=== PATIENT | female | born 1995 | race African-American/Black ===

== ENCOUNTER 2018-06-30 18:01 | Outpatient (REF) | payer MEDICAID, SELFPAY ==
[2018-07-02 14:13] LABS: Chlamydia Result Negative; GC Result Negative; Specimen Description CERVIX
== END 2018-06-30 18:21 ==
LOC: LBN 18:01
PROVIDERS: PCP Nurse Practitioner Family; Visit Provider Obstetrics & Gynecology Gynecology
DX: R10.32 Left lower quadrant pain (principal)
CPT/HCPCS: 87491; 87591

== ENCOUNTER 2018-07-07 01:28 | Outpatient (CLI) | payer MEDICAID, SELFPAY ==
--- NOTE | 2018-07-07 09:51 | DI.US_ITS ---
SYMPTOM/DIAGNOSIS: LLQ PAIN, R10.32 PELVIC ULTRASOUND: Transabdominal and transvaginal exams were performed. The uterus measures 6.9 by 3.6 by 4.8 cm. The endometrial stripe measures 3 mm. An involuting follicle measuring 2.2 cm. is seen on the left ovary. The right ovary is unremarkable. There is no evidence of ovarian torsion. The kidneys and bladder are unremarkable. IMPRESSION: Involuting dominant follicle versus cyst of the left ovary.
== END 2018-07-07 01:48 ==
PROVIDERS: PCP Nurse Practitioner Family; Visit Provider Obstetrics & Gynecology Gynecology
DX: R10.32 Left lower quadrant pain (principal); N83.02 Follicular cyst of left ovary
CPT/HCPCS: 76830; 76856

== ENCOUNTER 2018-12-10 12:39 | Outpatient (REF) | payer MEDICAID, SELFPAY ==
[2018-12-13 14:13] LABS: Chlamydia Result Negative; GC Result Negative
== END 2018-12-10 12:59 ==
LOC: LBN 12:39
PROVIDERS: PCP Nurse Practitioner Family; Visit Provider Nurse Practitioner Family
DX: Z11.3 Encounter for screening for infections with a predominantly sexual mode of transmission (principal)
CPT/HCPCS: 87491; 87591

== ENCOUNTER 2019-02-16 19:58 | Outpatient (REF) | payer MEDICAID, SELFPAY | END 2019-02-16 20:18 | LOC: NCHCN 19:58 | PROVIDERS: PCP Physician Assistant Medical; Visit Provider Physician Assistant Medical | DX: R35.0 Frequency of micturition (principal) | CPT/HCPCS: 87086 ==

== ENCOUNTER 2019-06-07 13:19 | Outpatient (REF) | payer MEDICAID, SELFPAY ==
[2019-06-07 21:41] LABS: Abs Immature Grans 0.01 k/cumm (0.0-0.09); Absolute Basophil Count 0.01 k/cumm (0.0-0.2); Absolute Eosinophil Count 0.07 k/cumm (0.0-0.7); Absolute Lymphocyte Count 1.58 k/cumm (1.2-3.4); Absolute Monocyte Count 0.47 k/cumm (0.11-0.7); Absolute Neutrophil Count 4.47 k/cumm (1.2-6.7); Basophils % 0.2; Eosinophils % 1.1; HCT 36.3 % (36.0-46.0); HGB 12.7 g/dL (12.0-15.5); Immature Grans % 0.2; Lymphocytes % 23.9; Mean Corpuscular Hemoglobin 28.1 pg (27.0-33.0); Mean Corpuscular Volume 80.3 fL (80-95); Mean Platelet Volume 12.4 fL (8.0-11.0); Monocytes % 7.1; Neutrophils % 67.5; Platelet Count 249 x1000/uL (130-400); RBC 4.52 m/cumm (4.00-5.20); RBC Distribution Width 14.8 % (11.7-14.6); White Blood Cell Count 6.61 k/cumm (4.4-10.8)
[2019-06-07 22:13] LABS: ALT 19 U/L (14-59); AST 12 U/L (15-37); Albumin 3.8 g/dL (3.4-5.0); Alkaline Phosphatase 76 U/L (46-116); Anion Gap 11.3 mmol/L (3-11); BUN 10 mg/dL (7-18); Bilirubin, Total 0.3 mg/dL (0.2-1.0); CO2 24.7 mmol/L (21.0-32.0); CREATININE 0.62 mg/dL (0.55-1.02); Calcium 8.8 mg/dL (8.5-10.1); Chloride 104 mmol/L (98-107); Glucose 91 mg/dL (70-100); Potassium 3.5 mmol/L (3.5-5.1); Sodium 140 mmol/L (136-145); Total Protein 7.2 g/dL (6.4-8.2)
== END 2019-06-07 13:39 ==
LOC: NCHCN 13:19
PROVIDERS: PCP Physician Assistant Medical; Visit Provider Nurse Practitioner Family
DX: F41.8 Other specified anxiety disorders (principal); K21.9 Gastro-esophageal reflux disease without esophagitis; Z86.2 Personal history of diseases of the blood and blood-forming organs and certain disorders involving the immune mechanism
CPT/HCPCS: 80053; 84443; 85025

== ENCOUNTER 2019-07-25 10:03 | Outpatient (CLI) | payer MEDICAID, SELFPAY ==
[2019-07-25 10:51] LABS: Kit/Specimen SENT
[2019-07-25 11:16] LABS: Abs Immature Grans 0.01 k/cumm (0.0-0.09); Absolute Basophil Count 0.02 k/cumm (0.0-0.2); Absolute Eosinophil Count 0.06 k/cumm (0.0-0.7); Absolute Lymphocyte Count 1.12 k/cumm (1.2-3.4); Absolute Neutrophil Count 6.29 k/cumm (1.2-6.7); Basophils % 0.3; Eosinophils % 0.8; HCT 33.8 % (36.0-46.0); HGB 11.8 g/dL (12.0-15.5); Immature Grans % 0.1; Mean Corp. HGB Concentration 34.9 g/dL (32.0-36.0); Mean Corpuscular Volume 80.1 fL (80-95); Mean Platelet Volume 11.5 fL (8.0-11.0); Monocytes % 6.3; Neutrophils % 78.5; Platelet Count 232 x1000/uL (130-400); RBC 4.22 m/cumm (4.00-5.20); RBC Distribution Width 14.5 % (11.7-14.6)
[2019-07-25 12:24] LABS: TSH (W/Ref FT4) 0.59 uIU/mL (0.36-3.74)
[2019-07-26 11:45] LABS: Hepatitis B Surface Ag Negative (Negative)
[2019-07-26 12:10] LABS: HIV-1/2 Ag & Ab Screen Negative (Negative)
[2019-07-26 12:11] LABS: Hepatitis C Ab w Rflx HCV PCR Negative (Negative)
[2019-07-26 13:40] LABS: Syphilis Total Ab w/Reflex Nonreactive (Nonreactive)
[2019-07-26 14:14] LABS: Rubella IgG Ab (UVM) Positive (See Note); Varicella IgG Antibody Positive (See Note)
== END 2019-07-25 10:23 ==
PROVIDERS: PCP Nurse Practitioner Family; Visit Provider Advanced Practice Midwife
DX: Z34.91 Encounter for supervision of normal pregnancy, unspecified, first trimester (principal); Z36.89 Encounter for other specified antenatal screening
CPT/HCPCS: 86787; 86803; 86850; 86900; 86901; 87340; 87389; 84443; 85025; 86762; 86780

== ENCOUNTER 2019-07-25 12:09 | Outpatient (REF) | payer MEDICAID, SELFPAY ==
[2019-07-25 14:21] LABS: *AMPHETAMINES SCREEN URINE Negative (Negative); *BARBITURATES SCREEN URINE Negative (Negative); *BENZODIAZEPINES SCREEN URINE Negative (Negative); Cannabinoids THC Negative (Negative); Cocaine Screen,Urine Negative (Negative); METHADONE URINE SCREEN Negative (Negative); OPIATES URINE SCREEN Negative (Negative)
[2019-07-25 14:32] LABS: Tricyclic Antidepressants Negative (Negative)
[2019-07-27 15:12] LABS: Chlamydia Result Negative (Negative)
[2019-07-29 14:15] LABS: GC Result Negative (Negative)
[2019-08-02 12:41] LABS: Buprenorphine Negative; Norbuprenorphine Negative
== END 2019-07-25 12:29 ==
LOC: LBN 12:09
PROVIDERS: PCP Nurse Practitioner Family; Visit Provider Advanced Practice Midwife
DX: Z34.91 Encounter for supervision of normal pregnancy, unspecified, first trimester (principal); Z11.3 Encounter for screening for infections with a predominantly sexual mode of transmission
CPT/HCPCS: 80307; 87491; 87591; 87086; 87480; 87510; 87660

== ENCOUNTER 2019-09-19 01:14 | Outpatient (CLI) | payer MEDICAID, SELFPAY ==
--- NOTE | 2019-09-19 09:02 | DI.US_ITS ---
EXAM: US OB 2-3 TRIMESTER CLINICAL HISTORY: ROUTINE CARE, Z34.90 SUPERVISION NORMAL TECHNIQUE: Ultrasound performed using standard protocol. COMPARISON: US PELVIS TRANSVAGINAL from 07/07/2018 FINDINGS: Fetus was in variable position during the exam. The placenta is anterior. The biometric measurement s correspond to 19 weeks 3 days and an EDC of January,. No abnormalities are seen. The amn iotic fluid appears visually normal. IMPRESSION: survey is within normal limits.
== END 2019-09-19 01:34 ==
PROVIDERS: PCP Nurse Practitioner Family; Visit Provider Advanced Practice Midwife
DX: Z34.92 Encounter for supervision of normal pregnancy, unspecified, second trimester (principal); Z3A.19 19 weeks gestation of pregnancy
CPT/HCPCS: 76805

== ENCOUNTER 2019-09-19 10:24 | Outpatient (CLI) | payer MEDICAID, SELFPAY ==
[2019-09-20 16:34] LABS: AFP 48.4 ng/mL; Calculated age at EDD 26 years; GA used in risk estimate Scan estimate; IVF Pregnancy No; Initial or repeat testing Initial testing; Insulin dependent diabetes No; Maternal Weight 164 lbs; Number of Fetuses 1; Physician Phone Number 802-748-7300; Prev Pregnancy w/NTD No; RECOMMENDED FOLLOW UP None.; Results Summary Normal risk
== END 2019-09-19 10:44 ==
PROVIDERS: PCP Nurse Practitioner Family; Visit Provider Advanced Practice Midwife
DX: Z34.92 Encounter for supervision of normal pregnancy, unspecified, second trimester (principal); Z36.89 Encounter for other specified antenatal screening; Z3A.19 19 weeks gestation of pregnancy
CPT/HCPCS: 36415; 76805; 82105

== ENCOUNTER 2019-11-30 02:50 | Outpatient (CLI) | payer MEDICAID, SELFPAY ==
[2019-11-30 08:47] LABS: Glucose,1 Hr (Glucola) 115 mg/dL (80-140)
[2019-11-30 09:00] LABS: HCT 31.6 % (36.0-46.0); HGB 11.1 g/dL (12.0-15.5); Mean Corp. HGB Concentration 35.1 g/dL (32.0-36.0); Mean Corpuscular Hemoglobin 29.7 pg (27.0-33.0); Mean Corpuscular Volume 84.5 fL (80-95); Mean Platelet Volume 11.6 fL (8.0-11.0); Platelet Count 183 x1000/uL (130-400); RBC 3.74 m/cumm (4.00-5.20); RBC Distribution Width 13.6 % (11.7-14.6); White Blood Cell Count 7.46 k/cumm (4.4-10.8)
== END 2019-11-30 03:10 ==
PROVIDERS: PCP Nurse Practitioner Family; Visit Provider Advanced Practice Midwife
DX: Z34.93 Encounter for supervision of normal pregnancy, unspecified, third trimester (principal)
CPT/HCPCS: 36415; 82950; 85027

== ENCOUNTER 2019-12-29 01:29 | Observation (INO) | payer MEDICAID, SELFPAY ==
[2019-12-29 01:44] LABS: Bilirubin Negative (Negative); Blood Negative (Negative); Clarity Clear (Clear); Glucose Negative (Negative); Ketones Negative (Negative); Leukocyte Esterase Negative (Negative); Nitrite Negative (Negative); Urobilinogen 0.2 EU/dL (Up TO 0.2)
[2019-12-29 02:13] LABS: Fetal Fibronectin Negative (Negative)
== END 2019-12-29 08:40 | disposition home or self-care (01) ==
LOC: OBS 01:31
PROVIDERS: Admitting Provider Advanced Practice Midwife; PCP Nurse Practitioner Family; Visit Provider Advanced Practice Midwife
DX: O60.03 Preterm labor without delivery, third trimester (principal); Z3A.32 32 weeks gestation of pregnancy
CPT/HCPCS: 81003; 82731; G0378

== ENCOUNTER 2020-01-10 10:02 | Observation (INO) | payer MEDICAID, SELFPAY ==
[2020-01-10] MEDS: Fluconazole 150 MG TAB PO (12:35)
--- NOTE | 2020-01-16 15:58 | NUR.NOTE ---
(Please see previous visit notes for additional information.) Encounter Date/Time: 01/16/2020 @ [id number] IDENTIFIERS Mother: Vicenta Richey :05.23.1994 Baby?s name: Yola Pang : 01/16/2022 @ 0402 Father/partner: Eric Pang SITUATION Concerns: -Routine visit introduction of services, assessment & POC Infant has not had a sustained latch and suck since delivery MATERNAL OR PROVIDER CONCERNS No sustained latch and suck Referred by Tone CORTES 01/15 @ 1050 ABM #5 indications for referral to services -Maternal or infant condition for which must be temporarily postponed or for which milk expression is required. POTENTIAL DIAGNOSTIC CODES common codes Maternal: Z39.1 Encounter of care of lactating mother Infant/[place] P92.9 Feeding problems of , unspecified Individualized Feeding Plan from Assessment Name: Yola Pang : 01/16/2022 @ 0402 Date: 01/16/2020 @ 1300 Parent feeding goals: . Parents desire to supplement with breastmilk and formula if any concern that Yola is not getting enough to eat. Feed the Baby Most babies feed 8-12 times per day Support the Milk Supply Aim for 8 or more milk removals per day Feed Yola with early feeding cues. Goal of 8-12 feedings per day lasting at least 10 minutes. 1) Wake Yola at least every 2-3 hours if she isn?t rousing for feeds. Limit latch attempts to 5 minutes. Hand express breastmilk into her mouth or give it to her by a spoon or pipette Position note Support Yola by her shoulders and offer the breast nipple to nose, bring her close when she opens her mouth wide, chin on first. 2) Supplement with expressed breastmilk. If supplement is indicated or if parents desire to supplement, expect the following amounts. ? Day 1: 2-10 ml per feeding ? Day 2: 5-15 ml per feeding ? Day 3: 15-30 ml per feeding ? Day 4: 30-60 ml per feeding ? Day 5: 63-79 ml per feeding 3) Double pump 4) Yola may wake and want to feed more after she has been supplemented. Yola may wake up later tonight and feed well at breast without the need to pump or supplement. 8-12 times a day for at least 15-20 minutes: breastfeed effectively or pump your breast. Confirm flange fit and maximum comfortable suction. Clean pump equipment after each pumping and sanitize every 24 hours. Bring baby & parent together Resolving the problem may take some time. Take Care of yourself Eat well, drink as you?re thirsty, rest with baby [id number] as much as possible. 30-45 minutes: Keep all feeding/pumping efforts together. Track your progress - feeding and pumping. Breasts: Massage your breasts before feeding or pumping or if breasts feel full. Prevent engorgement by feeding frequently. Warm packs BEFORE feeding. Cool packs BETWEEN feedings if still firm. Ibuprofen if recommended by your provider. Nipples: Mother Love/Hydrogel if needed Resources: [facility] [phone] [facility] Services: [phone] [facility]: [phone] (Steff Ramos @ [facility] [place] [phone] ([facility]) [facility] support for all new families: Every Thursday am @ [facility] Follow-up plan: Supplement Method Notes Adjust feeding method to baby?s effort and your comfort: o Fill a pipette with breastmilk. Insert your finger into your baby?s mouth and place the pipette next to your finger. Allow your baby to suck the breastmilk from the pipette. o Spoon or Cup feeding Hold your baby upright. Place the lip of the spoon or cup up to your baby?s lip and let them lick or sip the milk from the edge of the spoon or cup. o Paced bottle feeding Hold your baby upright and the bottle horizontally. Allow the milk to flow at your baby?s pace. -Contact Digital Research Analyst for further support, if nipples become more uncomfortable or if nipple trauma develops. -Contact your bookkeeping machine operator or OB provider promptly if you have any signs of infection or mastitis: fever, chills, shaking, feeling like you are getting the flu, redness, drainage or tenderness of your breast. -Contact infant?s resource recovery engineer/family doctor/PCP with any medical concerns or if is not meeting recommended or output goals or if any concerns about maternal medications and . SUMMARY Su findings related to standard Setting/Communication: IBCLC visited couplet and FOB on the Center. Yola was skin to skin on mother?s chest, resting and FOB sitting in chair. IBCLC introduced services and offered a visit. Parents expressed concern that has not latched yet and had several questions. IBCLC interviewed parents around feeding plan, reinforced informed choice. Mother and FOB states desire to breastfeed and want to supplement with formula by bottle if concerned that is not getting enough to eat or if mother is fatigued and FOB desires to feed infant in the middle of the night. IBCLC reviewed risks of supplementation and artificial nipples and supported informed choice. FOB states concern about immediate feeding and mother cites fatigue. IBCLC reviewed information, assisted /c latch/feeding attempt, initiating breast pump and applied for a breast pump from insurance. IBCLC reviewed feeding assessment, provided instructions around feeding and pumping, assisted /c a pumping and applied for a pump through [employer] to [facility]. Mother is a primip O pos, GBS negative /c hx of bipolar disorder and marijuana use daily. Mother cites support from FOB who is present, involved and supportive. Mother is fatigued during this visit and defers to FOB. delivered at term, AGA, precipitous labor and delivery, apgars 8/9 and had immediate skin to skin x 88 minutes. Mother has BCBS and purchased 2 manual pump prior to delivery. IBCLC reviewed access through the [employer]/their insurance and offered to assist application. IBCLC applied through [employer] for a breast pump with mother input and choice; mother has script copy. Yola has limited physical readiness to feed that is consistent with her gestational age. She is sleepy, has otherwise normal tone, limited cuing/hands to mouth. Her output is adequate for age one void and one stool. TCB not done as she is less than 12 hours. Her face has some asymmetry with right occipital/parietal bossing from presentation; mouth is symmetrical, with maxillary/mandibular approximation, full cup, closes jaw when tongue lift to palate, blister on upper lip. Limited mouth movements influenced by a sleepy baby. Mother has offered the breast 4 times in the last 7 hours with some latch and no sustained suck. rouses for about 50% of feeds. Yola was positioned skin to skin and ventral. Mother states she prefers the right breast. IBCLC instructed mom about breast massage and hand expression. Mother sleepy and FOB and IBCLC assisting mom /c expression expressed several large drops of milk. Milk was expressed into ?s mouth over 10 minutes; had increasing gape, latch and rare sucks. FOB suggested trying the left side in football and IBCLC assisted /c repositioning. Mother expressed milk independently and infant had a latch without suck. IBCLC advised pumping at this time and explained the role of hand expression and pumping, advising 8+/24h. IBCLC instructed in use of pump and mother double pumped x 20 minutes. [phone] IBCLC assisted with a second feeding. Parents state they pumped at 1300 but were waiting for IBCLC to assist with feeding. FOB notes how much easier it would be if he just fed formula by a bottle. Mother cites improved health for and lower cost with feeding breastmilk. IBCLC reinforced their team and counseled parenting is a time of adopting new roles and changing how you work together reinforced their choice, expect a time [place] of a week or two of evolving feeding plan. Both parents cite fatigue, and IBCLC assisted with napping. Mother states breast and nipple comfort and states breast changes with . Mother?s breasts are medium in size, pendulous, venation WNL, symmetrical. Her nipples have a medium diameter, short shaft length, everted at rest, no papillary edema and skin intact. BACKGROUND Risk Assessment AB Protocol #7 Maternal risk factors Primiparity depression Metabolic problems: Tobacco or other drugs/medications Infant risk factors Poor or painful latch, restricted feedings ASSESSMENT Weights and changes (Abdi et al, 2015) Location/Occasion Date Weight (grams) % from BW roll over press operator days Weight Center 01/16/2020 3515 grams Optimal AGA Output r/t age -Adequate voids 1 -Adequate stools 1 Infant Physical Assessment/Physiologic Stability Deferred to pediatric assessment READINESS TO FEED physiology -Muscle Flexion & Tone Normal RODRIGUES symmetrically, Flexed position at rest -Skin Normal normal for race, warm, smooth dry turgor -Respiratory, not oxygenation if monitored Normal RR normal, effort WNL Head Normal slight molding, Alertness/Interest Normal rooting, hand to mouth, easy to rouse, tongue movements Abnormal sleepy, -GI/Diaper area deferred Optimal readiness to feed Concern Adequate physical readiness to feed Age-appropriate feeding behavior Sleepy, requires rousing for feeds -Face at rest & with movement Normal symmetrical -Gums Normal Complete and straight; parallel -Jaw/Maxillary and mandibular symmetry Normal upper and lower aligned with loose opposition -Jaw placement (palpate with finger on inferior gum line to chin) Normal: normal placement, -Jaw Tension (palpate TMJ) Normal Tone relaxed, -Jaw Movement Abnormal jaw movement Narrow gape, arrhythmic, Quiver Buccal assessment: Cheek pads: Normal: Well-developed, full and round during suck Buccal strength (palpate for contraction) Normal: Normal Maxillary labial frenulum: Normal: Flange upwards to nose without tension Kot[place] Type 2 Restricted to mid gum line -Lips - cleft Normal Without cleft, -Lips, appearance Normal Upper lip blister -Lip tone at rest Normal: neutral tension Lips strength: Normal response to command/pulse sensation -Lips/chin position/movement Abnormal poor seal, loose seal, -Hard Palate, shape or appearance Normal: Intact, Abnormal Arch high arch, -Soft Palate, shape & tone Normal: Intact, normal tone -Tongue appearance Normal soft, round tip, symmetrical, rests in bottom of mouth, not visible when lips close -Tongue movement Elevation Abnormal: closes jaw to lift to palate Cup Normal: forms central groove, cups finger Peristalsis Normal: wave like motions, small excursions, tip to posterior tongue Abnormal: Arrhythmic, Extension Normal: Extends over lip, Abnormal: extends over lip and fatigues, Lateralize (rub gum line, tongue moves to sensation) Abnormal: , slow to lateralize, Suck Strength Abnormal: weak resistance Suction with digital oral exam Normal: rhythmic Abnormal: weak negative suction, Functional suck pattern: Transitional: 5-10 sucks/burst Normal: starts and stops a burst pattern Functional suck pattern at breast (expect variability with feed): Normal: adapts with flow Lingual frenulum attachment (AAP 2004) Type 3 Attachment of frenulum to mid-tongue blade Mucosa Normal - healthy Gag reflex: - Normal Present Concerns Related to sleepy baby slow to lateralize, quiver, fatigue with extension, transitional suck burst pattern Feeding Hx Concerns Frequency less than 8 feeds per day Repeated attempts to latch without sustained suck Duration less than 10 minutes Swallowing rare or none Difficult to latch - Sleepy for feedings Longest interval greater than 6 hours SUPPLEMENT - none SATISFACTION - sleepy EXPRESSION/PUMPING - inroducing Feeding assessment ASSESSMENT -Maternal Morgan limited, increasing. Mother cites fatigue Rousing: . Abnormal Independently for half the feedings. Initiation of feeding/Readiness to feed . Concerning/Abnormal: Alert once handled or drowsy. Some sucking. Adequate tone. Position (LAT) Data - Abnormal: head only turned toward mom, shoulders/hips do not align, arms/hands not around breast Abnormal: Mouth opposite nipple to start Action: IBCLC promoted body alignment and nipple to nose, advising collaboration between parents. Response: FOB and mother working together more. Normal: Turned toward mother, shoulders/hips aligned, arms/hands around breast Normal: Nose opposite nipple to start Abnormal: Mouth opposite nipple to start requires reinforcement Attachment Normal: Gape response, head tilts back, Abnormal: top & bottom lip reach breast together, latch only with assistance, must hold nipple in mouth, excessive jaw excursion. Latch Normal wide lip angle 140, asymmetric Lower lip curled in and mom corrects Suck Feeding duration: 3 Abnormal uncoordinated/disorganized, must be stimulated to continue feeding, widely-spaced suck bursts Jaw excursions Normal wide Swallows (Quality, amount, ratio) Quality: Abnormal Absent, Swallow Count Abnormal suck/swallow ratio 4+/1 Maternal comfort Normal tugging Mother?s nipple Normal: similar to pre-feed Satiety Abnormal: baby falls asleep at the breast Quality (Cue-based Feeding Scale) : Abnormal: Latch is weak/inconsistent, with a frequent need to re-latch. Limited effort. May be considered NNBF. -Monitor growth and nutrition MATERNAL Breast and nipple exam -Coping Fair fatigued, dependent on partner -Breasts -Breast pain? No -Shape Normal convex, pendulous, symmetrical Tubular, N underdeveloped, N angle/space - , N asymmetrical, N extramammary tissue/hypermastia, N hypomastia, N axillary breast tissue -Size -medium -Venous pattern WNL Breast assessment Normal filling Assessment Y or N N Lesions N scars, N engorged bilateral generalized edema /s fever and myalgia, N erythema, N [id number], N rash, N ecchymosis, areolar edema, N nodules, N lump/mass, N plugged duct N s/s of mastitis/inflammation unilateral, febrile, myalgia (flu-like s/s) Predisposing factors to mastitis Y or N N Nipple trauma Y Decreased feeding frequency, duration or scheduled, Missed feedings Y Inefficient milk removal poor attachment, weak/uncoordinated suck, pumping, N Rapid weaning N Illness mother or baby N Oversupply N Pressure on the breast bra, car seatbelt N Partial blockage of milk duct - Nipple bleb, plugged duct N Maternal stress/fatigue N Maternal malnutrition Interventions: Breast massage Pumping/hand expression Optimal Breast assessment WNL for infant?s age Had Breast changes with -Nipples -Size/diameter Medium (12-15 mm), -Protraction/shape/shaft length Normal: short-shafted, -Shape after feeding Normal: Same shape Exam Y or N N Papillary edema N Generalized edema N Skin integrity intact N Sensitivity WNL N Purulent drainage not present N Rash/dermatitis N Coloration N Lesions not present N Patterson glands present, not inflamed N Bleb PAIN assessment -Nipple sensation Normal Comfort with light touch States nipple comfort Optimal Nipple assessment WNL -Milk production colostrum transitional milk mature milk Over-abundant milk supply -Milk Ejection Reflex (PAT) WNL Brisk Maternal pain related to PAT -Mother?s estimate of milk supply Jenifer Alonzo, RNC, IBCLC, BSN, MST Digital Research Analyst The Center @ [facility] and [facility] [address] [place] [address] Reviewed: ? Skin to skin ? Feed early and often ? Feeding cues ? Position and attachment ? How often and How long? ? I know my baby is getting enough milk ? Hand expression ? Engorgement ? Maintaining supply ? Babies are sensitive ? Breastmilk is all your baby needs for 6 months Avoid pacifiers and formula. ? When to call for help. Written materials provided: ([facility]) How to know your baby is getting enough to eat Individualized Feeding Plan Daily feeding/pumping log Maggy
== END 2020-01-10 13:15 | disposition home or self-care (01) ==
LOC: OBS 11:43
PROVIDERS: Admitting Provider Advanced Practice Midwife; PCP Nurse Practitioner Family; Visit Provider Advanced Practice Midwife
DX: O60.03 Preterm labor without delivery, third trimester (principal); Z3A.34 34 weeks gestation of pregnancy
CPT/HCPCS: 59025; G0378

== ENCOUNTER 2020-01-20 12:16 | Outpatient (REF) | payer MEDICAID, SELFPAY ==
[2020-01-20 13:41] LABS: *AMPHETAMINES SCREEN URINE Negative (Negative); *BARBITURATES SCREEN URINE Negative (Negative); *BENZODIAZEPINES SCREEN URINE Negative (Negative); Cannabinoids THC Negative (Negative); Cocaine Screen,Urine Negative (Negative); METHADONE URINE SCREEN Negative (Negative); OPIATES URINE SCREEN Negative (Negative); Tricyclic Antidepressants Negative (Negative)
[2020-01-26 17:03] LABS: Buprenorphine Negative; Norbuprenorphine Negative
== END 2020-01-20 12:36 ==
LOC: LBN 12:16
PROVIDERS: PCP Nurse Practitioner Family; Visit Provider Advanced Practice Midwife
DX: Z34.93 Encounter for supervision of normal pregnancy, unspecified, third trimester (principal); Z36.85 Encounter for antenatal screening for Streptococcus B
CPT/HCPCS: 80307; 87081

== ENCOUNTER 2020-01-31 17:15 | Outpatient (CLI) | payer MEDICAID, SELFPAY | END 2020-01-31 17:35 | PROVIDERS: PCP Nurse Practitioner Family; Visit Provider Advanced Practice Midwife | DX: O26.893 Other specified pregnancy related conditions, third trimester (principal); O36.8130 Decreased fetal movements, third trimester, not applicable or unspecified; Z3A.37 37 weeks gestation of pregnancy | CPT/HCPCS: 59025 ==

== ENCOUNTER 2020-02-06 10:23 | Observation (INO) | payer MEDICAID, SELFPAY | END 2020-02-06 12:03 | disposition home or self-care (01) | PROVIDERS: Admitting Provider Advanced Practice Midwife; PCP Nurse Practitioner Family; Visit Provider Advanced Practice Midwife | DX: O47.1 False labor at or after 37 completed weeks of gestation (principal); Z3A.38 38 weeks gestation of pregnancy | CPT/HCPCS: G0378 ==

== ENCOUNTER 2020-02-13 16:26 | Outpatient (CLI) | payer MEDICAID, SELFPAY ==
[2020-02-13 18:17] LABS: ROM Plus Negative
== END 2020-02-13 16:46 ==
PROVIDERS: PCP Nurse Practitioner Family; Visit Provider Advanced Practice Midwife
DX: O99.343 Other mental disorders complicating pregnancy, third trimester (principal); F41.9 Anxiety disorder, unspecified; Z3A.39 39 weeks gestation of pregnancy
CPT/HCPCS: 84112; 59025

== ENCOUNTER 2020-02-15 15:27 | Outpatient (CLI) | payer MEDICAID, SELFPAY | END 2020-02-15 15:47 | PROVIDERS: PCP Nurse Practitioner Family; Visit Provider Advanced Practice Midwife | DX: O47.1 False labor at or after 37 completed weeks of gestation (principal); Z3A.39 39 weeks gestation of pregnancy | CPT/HCPCS: 59025 ==

== ENCOUNTER 2020-02-24 07:41 | Inpatient (IN) | payer MEDICAID, SELFPAY ==
[2020-02-24 08:31] LABS: HCT 33.7 % (36.0-46.0); HGB 11.6 g/dL (12.0-15.5); Mean Corp. HGB Concentration 34.4 g/dL (32.0-36.0); Mean Corpuscular Volume 81.4 fL (80-95); Mean Platelet Volume 12.7 fL (8.0-11.0); Platelet Count 162 x1000/uL (130-400); RBC 4.14 m/cumm (4.00-5.20); RBC Distribution Width 14.3 % (11.7-14.6); White Blood Cell Count 10.83 k/cumm (4.4-10.8)
[2020-02-25 07:46] LABS: HCT 32.1 % (36.0-46.0); Mean Corp. HGB Concentration 34.3 g/dL (32.0-36.0); Mean Corpuscular Hemoglobin 27.9 pg (27.0-33.0); Mean Corpuscular Volume 81.5 fL (80-95); Mean Platelet Volume 12.2 fL (8.0-11.0); Platelet Count 162 x1000/uL (130-400); RBC 3.94 m/cumm (4.00-5.20); RBC Distribution Width 14.4 % (11.7-14.6); White Blood Cell Count 13.48 k/cumm (4.4-10.8)
[2020-02-27] MEDS: Oxytocin 10 UNITS/ML VIAL IM (08:42)
[2020-02-27 11:59] LABS: COVID-19 RT-PCR UVMMC Result Negative (Negative)
== END 2020-02-26 10:05 | disposition home or self-care (01) | DRG 807 ==
PROVIDERS: Advanced Practice Midwife; Admitting Provider Advanced Practice Midwife; PCP Nurse Practitioner Family; Visit Provider Advanced Practice Midwife
DX: O69.3XX0 Labor and delivery complicated by short cord, not applicable or unspecified (principal); Z37.0 Single live birth; O48.0 Post-term pregnancy; Z3A.41 41 weeks gestation of pregnancy; O99.344 Other mental disorders complicating childbirth; O99.62 Diseases of the digestive system complicating childbirth; F41.8 Other specified anxiety disorders; K21.9 Gastro-esophageal reflux disease without esophagitis; Z11.59 Encounter for screening for other viral diseases
CPT/HCPCS: 36415; 85027; 86850; 86900; 86901; U0003; J2590

== ENCOUNTER 2020-04-09 12:11 | Outpatient (REF) | payer MEDICAID, SELFPAY ==
--- NOTE | 2020-04-09 11:40 | PAPFT_PTH ---
PATIENT: Claudia Greco LOC: [facility] U#:[id number] AGE/SX: 24/F ROOM: RE04/09/[address]: Ana Duff CNM : 1995 BED: DIS: 04/09/2020 SPEC #: [id number] RECD: 04/09/20 18:13 STATUS: AVIVA REQ #: [id number] CANDACE: 04/09/20 11:[address]: Ana Duff DEPT: [facility] Cytology RECD BY: Juliana Vergara ENTERED: 04/09/20 18:13 SP TYPE: PAPFT OTHR DR: Temitope Jeronimo Tissues: 1 - CX/ENDOCX FOR PAP SMEARS Procedures: PAP THIN PREP/UVM Screening Comments: [id number] (CHLAMYDIA/GC)
[2020-04-12 15:30] LABS: Chlamydia Result Negative (Negative); GC Result Negative (Negative)
== END 2020-04-09 12:31 ==
LOC: LBN 12:11
PROVIDERS: PCP Nurse Practitioner Family; Visit Provider Advanced Practice Midwife
DX: Z11.3 Encounter for screening for infections with a predominantly sexual mode of transmission (principal); Z11.51 Encounter for screening for human papillomavirus (HPV)
CPT/HCPCS: 87491; 87591; 88142

== ENCOUNTER 2020-05-07 15:35 | Outpatient (REF) | payer MEDICAID, SELFPAY ==
[2020-05-07 19:52] LABS: Abs Immature Grans 0.03 10^3/uL (0.0-0.06); Absolute Basophil Count 0.02 10^3/uL (0.0-0.2); Absolute Eosinophil Count 0.12 10^3/uL (0.0-0.7); Absolute Monocyte Count 0.43 10^3/uL (0.1-0.8); Absolute Neutrophil Count 5.57 10^3/uL (1.2-6.7); Basophils % 0.3; Eosinophils % 1.5; HCT 36.9 % (36.0-46.0); HGB 12.6 g/dL (11.2-15.7); Immature Grans % 0.4; Lymphocytes % 22.6; MCH 27.4 pg (27.0-33.0); MCHC 34.1 % (32.0-36.0); MCV 80.2 fL (80-95); MPV 12.3 fL (8.0-11.0); Monocytes % 5.4; Neutrophils % 69.8; Nucleated RBC 0 %; Platelet Count 251 10^3/uL (130-400); RDW 14.1 % (11.7-14.6); RDW-SD 40.8 fL; WBC 7.97 10^3/uL (4.4-10.8)
[2020-05-07 20:14] LABS: Anion Gap 11.3 mmol/L (3-11); BUN 12 mg/dL (7-18); CO2 25.7 mmol/L (21.0-32.0); Calcium 8.6 mg/dL (8.5-10.1); Chloride 101 mmol/L (98-107); Glucose 115 mg/dL (74-106); Magnesium 1.5 mg/dL (1.8-2.4); Potassium 3.5 mmol/L (3.5-5.1); Sodium 138 mmol/L (136-145); TSH 0.84 uIU/mL (0.36-3.74)
== END 2020-05-07 15:55 ==
LOC: NCHCN 15:35
PROVIDERS: PCP Nurse Practitioner Family; Visit Provider Nurse Practitioner Family
DX: F41.8 Other specified anxiety disorders (principal); R89.9 Unspecified abnormal finding in specimens from other organs, systems and tissues
CPT/HCPCS: 80048; 82306; 83735; 84443; 85025

== ENCOUNTER 2020-11-01 11:14 | Outpatient (REF) | payer MEDICAID, SELFPAY ==
[2020-11-01 15:43] LABS: HGB 10.1 g/dL (11.2-15.7); MCH 27.6 pg (27.0-33.0); MCHC 33.7 % (32.0-36.0); MPV 11.5 fL (8.0-11.0); Platelet Count 302 10^3/uL (130-400); RBC 3.66 10^6/uL (3.93-5.22); RDW-SD 39.2 fL; WBC 7.48 10^3/uL (4.4-10.8)
[2020-11-01 16:05] LABS: Hemoglobin A1C 4.9 % (<5.7)
[2020-11-01 16:27] LABS: Anion Gap 9.1 mmol/L (3-11); BUN 10 mg/dL (7-18); CO2 26.9 mmol/L (21.0-32.0); CREATININE 0.6 mg/dL (0.55-1.02); Calcium 8.5 mg/dL (8.5-10.1); Chloride 101 mmol/L (98-107); Glucose 81 mg/dL (74-106); Magnesium 1.9 mg/dL (1.8-2.4); Potassium 3.7 mmol/L (3.5-5.1); Sodium 137 mmol/L (136-145); TSH 0.79 uIU/mL (0.36-3.74)
== END 2020-11-01 11:15 | disposition home or self-care (01) ==
LOC: NCHCN 11:14
PROVIDERS: PCP Nurse Practitioner Family; Visit Provider Nurse Practitioner Family
DX: E83.42 Hypomagnesemia (principal); K21.9 Gastro-esophageal reflux disease without esophagitis; N92.6 Irregular menstruation, unspecified; J45.20 Mild intermittent asthma, uncomplicated
CPT/HCPCS: 80048; 85027; 83036; 83735; 84443

== ENCOUNTER 2021-03-08 15:38 | Outpatient (REF) | payer MEDICAID, SELFPAY ==
[2021-03-10 13:09] LABS: COVID-19 RT-PCR UVMMC Result Negative (Negative)
== END 2021-03-08 15:39 | disposition home or self-care (01) ==
LOC: LBN 15:38
PROVIDERS: PCP Nurse Practitioner Family; Visit Provider Physician Assistant Medical
DX: J06.9 Acute upper respiratory infection, unspecified (principal); Z20.822 Contact with and (suspected) exposure to COVID-19
CPT/HCPCS: U0003

== ENCOUNTER 2021-04-13 08:37 | Inpatient (IN) | payer MEDICAID, SELFPAY ==
[2021-04-13 08:45] VITALS: BP 122/77; PULSE 110; TEMP 36.4; O2SAT 99
--- NOTE | 2021-04-13 08:45 | W.ED.GENAD ---
Discharge Plan Disposition Patient Disposition: [facility] INPATIENT Condition: Serious Discharge Details Chief Complaint: Abd Prob Clinical Impression: Acute cholecystitis, Acute pancreatitis Primary Care Provider: Temitope Jeronimo ED Provider: Malgorzata Melendez Home Meds and New Rx's Prescriptions: No Action albuterol sulfate [ProAir HFA] 90 mcg/actuation HFA aerosol inhaler 2 puff IH Q6H PRNRF: 0 buspirone 15 mg tablet 15 mg PO BID RF: 0 loratadine [Claritin] 10 mg tablet 10 mg PO DAILY RF: 0 Mirena 20 mcg/24 hours (5 yrs) 52 mg intrauterine device 1 device IY ONCE RF: 0 methylphenidate HCl 5 mg tablet 10 mg PO BID RF: 0 pyridoxine (vitamin B6) [Vitamin B-6] 50 mg tablet 25 mg PO BID RF: 0 Medical Decision Making Patient is a pleasant 25-year-old female presented with chief complaint of abdominal pain. Contacted by her primary care, Verónica Michael, prior to her coming in for evaluation. Patient reports the pain began 3 days ago and progressively been increasing. States that pain came on after heavy drinking on Thursday. She denies any fevers or chills. She has had some occasional nausea but no vomiting. States the pain is primarily around the umbilicus. Pain is exacerbated when trying to eat. States that over the past 48 hours, she has no p.o. intake. States that she does have a history of angry gallbladder. Believes that she has had gallstones in the past. This imaging was obtained at [facility]. She states that this pain does not feel similar as the pain that she experienced previously when she had issues with her gallbladder was associated with fatty foods. She states that she was advised to try dietary changes and that this was successful in preventing pain since the initial onset at the beginning of the year. However, she reports that she does have some financial stressors and has been eating more processed foods recently as well. States her urine is more concentrated than normal but otherwise, no dysuria, increased frequency or urgency. She also reports that she is on the tail end of her menses. Denies any vaginal discomfort or unusual discharge. On exam, patient appears uncomfortable. She is tachycardic with a heart rate of 110. She does appear slightly dry. Abdomen is actually tender over the umbilicus but she does have diffuse discomfort with some rebound discomfort as well. She has negative Epperson sign and minimal discomfort over McBurney's point compared to the umbilicus and epigastric regions. Primarily concerned for cholecystitis, pancreatitis, atypical presentation for appendicitis. Will obtain baseline labs and imaging. Ultrasounds not available today, will obtain a CT. Will give antiemetic and pain medication. Labs reviewed. Patient is a white count of 13.8. She is anemic with a hemoglobin 10.4 which is baseline for the patient. Potassium 3.2, will replenish this here. AST elevated at 132, ALT 234, alk phos 221. Patient's lipase is 8334. Awaiting to hear from CT. Dr. Castillo evaluated the patient with an ultrasound. Her gallbladder did appear very contracted and was difficult to find. However, the gallbladder wall did appear thickened with surrounding fluid. No blatant stone was visualized. Pain increased after US, will give another 4mg Morphine. CT reviewed by radiologist FINDINGS: Lungs: Mild right basilar atelectasis. Liver: The liver is diffusely low in attenuation, compatible with fatty infiltration. Gallbladder and bile ducts: Gallbladder is contracted. The wall appears thickened. Pericholecystic fluid appears to be present. Gallstone present. Common duct is dilated at 8 mm. Small stones may be present within. Cystic duct stones appear to be present. Pancreas: Unremarkable. No ductal dilation. Spleen: mild splenomegaly. Adrenal glands: Normal. No mass. Kidneys and ureters: Unremarkable. No hydronephrosis. Stomach and bowel: Unremarkable. No obstruction. No mucosal thickening. Appendix: No evidence of appendicitis. Intraperitoneal space: Small amount of fluid in the pelvis. Vasculature: Unremarkable. No abdominal aortic aneurysm. Lymph nodes: Unremarkable. No enlarged lymph nodes. Urinary bladder: Unremarkable as visualized. Reproductive: IUD. Complex cyst left ovary. Bones/joints: Unremarkable. No acute fracture. Soft tissues: Unremarkable. IMPRESSION: 1. Cholecystitis and cholelithiasis 2. Possible choledocholithiasis Concerned that patient will require ERCP, will consult with GI. [facility] [place] Unable to accept the patient at this time. Consulted with Dr. Bhakta with GI at [facility]. He advised treating like pancreatitis with fluids, NPO. Advised that he will need ECRP at some point but not emergently indicated as her bili is normal. He recommended admission here, monitoring pancreatitis. Recommended sending imaging to their facility. Recommended that this is consistent with gallstone pancreatitis. He did not recommend antibiotics for htis but recommended watching and continuing to monitor for fever or worsening white count. He did recommend touching base with our general surgeon regarding cholecystitis as they may recommend abx. Does not feel that htis is cholangitis. Consulted with Dr. Rosales who recommended zosyn. She agrees to admission, I will place initial holding orders. Plan is for patient to be admitted here. Plan for ERCP during this admission, likely will occur on Thursday. Subsequently, patient will require a cholecystectomy. If patient clinically declines, [facility] advises be happy to speak again have kept the patient's case open. Discussed this plan at length with the patient who is in agreement. She will remain n.p.o. She is receiving IV hydration and have ordered the antibiotics as recommended by Dr. Rosales. At request of patient, called patient's mother, Margarita [phone] HPI General Mode of arrival: ambulatory. Date/Time Provider Initiated Documentation: 04/13/21 08:45. Limitations to Documentation: no limitations. Information obtained by: patient, RN/MD (called by PATIENT TRANSPORT OFFICER prior to patient arrival) and RN notes reviewed. History of Present Illness 25 year old F presents to the emergency department with the chief complaint of abdominal pain, described as severe, with intensity rated at 8. Quality is described as sharp (and cramping), and is localized to the abdomen. Patient reports no radiation. Patient started experiencing this day(s) and it has been constant. No relieving factors improve symptom(s), Eating worsens symptoms . Patient notes loss of appetite; denies chest pain, cough, fever/chills, nausea/vomiting, rash, shortness of breath (deep inspiration worsens) and syncope. Patient did receive the following treatments prior to arrival, none Related Data Home Medications Medication Instructions Recorded Confirmed albuterol sulfate 90 mcg/actuation 2 puff IH Q6H PRN 06/30/18 04/13/21 aerosol inhaler buspirone 15 mg tablet 15 mg PO BID 06/30/18 04/13/21 loratadine 10 mg tablet 10 mg PO DAILY 06/30/18 04/13/21 levonorgestrel 20 mcg/24 hours (6 1 device IY ONCE 05/17/20 04/13/21 yrs) 52 mg intrauterine device methylphenidate HCl 10 mg PO BID 04/13/21 04/13/21 pyridoxine (vitamin B6) [Vitamin 25 mg PO BID 04/13/21 04/13/21 B-6] Allergies Allergy/AdvReac Type Severity Reaction Status Date / Time seasonal allergies Allergy Intermediate Uncoded 04/13/21 08:55 Review of Systems Constitutional Constitutional: Reports as per HPI, Denies chills, Reports fatigue, Denies fever(s), Denies headache(s), Reports lethargy and Reports poor appetite ENT Ears, Nose, Mouth, and Throat: Denies headache(s) Cardiovascular Cardiovascular: Reports as per HPI, Denies chest pain and Denies dyspnea Respiratory Respiratory: Reports as per HPI, Denies cough and Denies dyspnea Gastrointestinal Gastrointestinal: Reports as per HPI Genitourinary Genitourinary: Reports as per HPI, Denies dysuria and Denies vaginal discharge Musculoskeletal Musculoskeletal: Reports as per HPI and Denies back pain Integumentary/Breasts Skin/Breast: Reports as per HPI and Denies rash Neurologic Neurologic: Reports as per HPI and Denies headache(s) Endocrine Endocrine: Reports fatigue PFSH Medical History Anxiety Anxiety with depression (06/03/17) buspar 15 mg in a.m. and 7.5 mg Asthma inhaler in the past Chronic GERD omeprazole daily Headache migraines rarely Tobacco use 1 ppd, quit 06/2019 Uses contraception IUD Family History Father Alcohol abuse Sister Asthma Mother Bipolar 1 disorder Grandmother Bipolar 1 disorder Social History Smoking/Tobacco Use Status: Current every day Tobacco Type: cigarettes Second Hand Exposure: Yes Smoking risk assessment performed?: Yes Alcohol Intake: never Drug use: Never Substance use type: does not use Adopted: Yes (age 6mo) Foster care: No Household members: spouse, children and other Details: 06/2018 Bonilla Bentley 1yo Number of Children: 2 current occupation: [employer] Sexually active: Yes Current gender identity: female Seatbelt use: always Do you feel safe at home: Yes Do you feel safe in your relationship?: Yes Female Reproductive History Menstrual control method: implanted History History 3 Para 3 Hx # Term Pregnancies 3 Multiple births 0 Hx # Pregnancies 0 Ectopic pregnancies 0 AB induced 0 Hx Number of Living Children 3 AB spontaneous 0 Past Pregnancies Del. Date GA/Weeks # Outcome Route Wgt Sex Labor Lgth Anesthesia Location Prov Complic 04/14/13 40 No Successful vaginal 3316.894 g Female 6 local Tonya 05/20/17 40 No Successful vaginal 3770.487 g Male 12 local Michelle 02/24/20 41 No Successful vaginal 4025.632 g Male 9 hrs 14 min A.RONEY Ribera Delivery Date: 04/14/13 Yola Mott. Pitocin augmentation. Aby Carlos Delivery Date: 05/20/17 Mc, IOL for prodromal labor Aby Carlos Delivery Date: 02/24/20 short umbilical cord noted Hailee Blue Exam Const General: cooperative, uncomfortable, no acute distress, well developed and ill appearing acutely Nutritional Appearance: average body habitus and well nourished Orientation: alert and awake [facility] Head: normal to inspection Resp Effort & Inspection: normal respiratory effort, able to speak in complete sentences and no respiratory distress Auscultation: clear to auscultation bilaterally, no rales, no rhonchi and no wheezes Cardio Rate: tachycardic Rhythm: regular rhythm Heart Sounds: S1 normal and S2 normal GI Inspection: normal to inspection, non-distended and no incisions Palpation: soft, no hepatosplenomegaly, not firm, guarding (umbilical region), no hernias, no masses, not rigid, tender (diffusely tender, maximal at umbilical and epigastric region) with rebound tenderness; not at McBurney's point and Epperson's sign negative and No ascites Percussion: normal to percussion Auscultation: hypoactive bowel sounds Back/Spine/Pelvis Back: no CVA tenderness Skin General skin exam: no rashes or lesions noted Trauma: no lacerations or abrasions Neuro General: patient alert and patient awake Cognition: normal cognition Speech: speech normal Gait: normal gait Psych Appearance: grossly normal and well kempt Mental Status: mental status grossly normal Speech and Movement: speech and movement normal
[2021-04-13 08:59] LABS: Bilirubin Small (Negative); Blood Trace-intact (Negative); Glucose Negative (Negative); Ketones 40 mg/dL (Negative); Leukocyte Esterase Negative (Negative); Nitrite Negative (Negative); Urobilinogen 0.2 EU/dL (Up TO 0.2)
[2021-04-13 09:06] LABS: Clarity Sl Cloudy (Clear); Epithelial Cells Many HPF (Negative)
[2021-04-13 09:07] LABS: Bacteria Many HPF (Negative); C & S Indicated? No/Sq. Contamination
[2021-04-13 09:12] LABS: Abs Immature Grans 0.05 10^3/uL (0.0-0.06); Absolute Eosinophil Count 0.06 10^3/uL (0.0-0.7); Absolute Lymphocyte Count 0.87 10^3/uL (1.2-3.4); Absolute Neutrophil Count 12.06 10^3/uL (1.2-6.7); Basophils % 0.1; Eosinophils % 0.4; HCT 32.8 % (36.0-46.0); HGB 10.4 g/dL (11.2-15.7); Immature Grans % 0.4; Lymphocytes % 6.3; MCH 20.5 pg (27.0-33.0); MCHC 31.7 % (32.0-36.0); Monocytes % 5.8; Nucleated RBC 0 %; RBC 5.08 10^6/uL (3.93-5.22); RDW 18.7 % (11.7-14.6); RDW-SD 42.7 fL; WBC 13.86 10^3/uL (4.4-10.8)
[2021-04-13] MEDS: MORPHine 4 MG/ML SYR IVP ×2 (09:17→10:52)
[2021-04-13] MEDS: Normal Saline 1,000 ML 1000 ML IV (09:17)
[2021-04-13] MEDS: Ondansetron 4 MG/2 ML VIAL IVP (09:18)
[2021-04-13] MEDS: ACETAMINOPHEN 1,000 MG/100 ML BTL 400 MG IVPB ×2 (09:18→18:37)
[2021-04-13] MEDS: Normal Saline Flush 10 ML SYR IVP ×4 (09:18→15:16)
[2021-04-13 09:23] LABS: Absolute Basophil Count 0.01 10^3/uL (0.0-0.2)
[2021-04-13 09:30] LABS: MCV 64.6 fL (80-95)
[2021-04-13 09:31] LABS: Anisocytosis 1+; Diff Comment Diff Reviewed; Hypochromasia 1+; Microcytosis 2+; Platelet Count 290 10^3/uL (130-400); Polychromasia Present
[2021-04-13 09:54] LABS: ALT 234 U/L (14-59); AST 132 U/L (15-37); Albumin 3.3 g/dL (3.4-5.0); Alkaline Phosphatase 221 U/L (46-116); Anion Gap 9.3 mmol/L (3-11); BUN 11 mg/dL (7-18); Bilirubin, Total 0.9 mg/dL (0.2-1.0); CO2 25.7 mmol/L (21.0-32.0); CREATININE 0.7 mg/dL (0.55-1.02); Chloride 104 mmol/L (98-107); Glucose 83 mg/dL (74-106); Magnesium 1.7 mg/dL (1.8-2.4); Potassium 3.2 mmol/L (3.5-5.1); Sodium 139 mmol/L (136-145); Total Protein 6.6 g/dL (6.4-8.2)
--- NOTE | 2021-04-13 10:04 | DI.CT_ITS ---
Exam(s) CT ABDOMEN PELVIS W EXAM: CT ABDOMEN PELVIS W INDICATION: diffuse pain, maximal around umbilicus. COMPARISON: CT CHEST FOR PULMONARY EMBOLUS from 07/13/2016 TECHNIQUE: FINDINGS: CT examination of the abdomen and pelvis was performed with a bolus infusion of 100 cc of Omnipaque 3 50. Images obtained through the lung bases are unremarkable. The liver is unremarkable in appearance. The gallbladder is contracted and may be thick-walled. There is probable cholelithiasis. There may be a small pericholecystic fluid collection. There is slight prominence of the common duct which myriam sures about 8 millimeters in greatest diameter. Small areas of increased attenuation may be present in the common duct, intraductal stones not excluded. Pancreas appears normal. Spleen is unremarkable in appearance. Adrenals appear normal. The kidneys are unremarkable with no evidence of hydronephrosis, nephrolithiasis, or renal mass.. Ur inary bladder unremarkable. Abdominal aorta is of normal diameter and no major vascular abnormality is seen. No abdominal wall hernia. No abdominal or pelvic adenopathy. Uterus is unremarkable in appearance with an IUD in uterine midline. There is a presumed 22 millimet er left ovarian cyst which may be septated. Small quantity of fluid is present in the pelvis which i s nonspecific.. Appendix is normal. No evidence of diverticulitis or bowel obstruction. IMPRESSION: Probable cholelithiasis is in a contracted gallbladder, possibility of cholecystitis and or common du ct obstruction is raised. Correlation with right upper quadrant ultrasound recommended. RADIATION DOSE DELIVERED: 1,024.2mGy.cm Total DLP 1,024.2mGy.cm Total DLP CTDIvol RADIATION OPTIMIZATION: All CT scans at this facility use at least one of these dose optimization te chniques: automated exposure control; mA and/or kV adjustment per patient size (includes targeted exa ms where dose is matched to clinical indication); or iterative reconstruction.
[2021-04-13] MEDS: Omnipaque 350 MG/ML 100 ML BTL IJ (10:08)
[2021-04-13] MEDS: Normal Saline - Diluent 50 ML VIAL IV (10:08)
[2021-04-13 10:14] LABS: Lipase 8334 U/L (73-393)
[2021-04-13] MEDS: Lactated Ringers 1,000 ML 1000 ML IV (10:51)
--- NOTE | 2021-04-13 11:19 | DI.VRAD_ITS ---
PROCEDURE INFORMATION: Exam: CT Abdomen And Pelvis With Contrast Exam date and time: 04/13/2021 9:03 AM Age: 25 years old Clinical indication: Abdominal pain; Periumbilical; Patient HX: Diffuse pain, maximal around umbilicus. Worse with food or drink. HX of gallstones. TECHNIQUE: Imaging protocol: Computed tomography of the abdomen and pelvis with contrast. Radiation optimization: All CT scans at this facility use at least one of these dose optimization techniques: automated exposure control; mA and/or kV adjustment per patient size (includes targeted exams where dose is matched to clinical indication); or iterative reconstruction. Contrast material: OMNI-PAQUE 350; Contrast volume: 100 ml; Contrast route: INTRAVENOUS (IV); COMPARISON: US PELVIS TRANSVAGINAL 07/07/2018 1:09 PM FINDINGS: Lungs: Mild right basilar atelectasis. Liver: The liver is diffusely low in attenuation, compatible with fatty infiltration. Gallbladder and bile ducts: Gallbladder is contracted. The wall appears thickened. Pericholecystic fluid appears to be present. Gallstone present. Common duct is dilated at 8 mm. Small stones may be present within. Cystic duct stones appear to be present. Pancreas: Unremarkable. No ductal dilation. Spleen: mild splenomegaly. Adrenal glands: Normal. No mass. Kidneys and ureters: Unremarkable. No hydronephrosis. Stomach and bowel: Unremarkable. No obstruction. No mucosal thickening. Appendix: No evidence of appendicitis. Intraperitoneal space: Small amount of fluid in the pelvis. Vasculature: Unremarkable. No abdominal aortic aneurysm. Lymph nodes: Unremarkable. No enlarged lymph nodes. Urinary bladder: Unremarkable as visualized. Reproductive: IUD. Complex cyst left ovary. Bones/joints: Unremarkable. No acute fracture. Soft tissues: Unremarkable. IMPRESSION: 1. Cholecystitis and cholelithiasis 2. Possible choledocholithiasis Dictated and Authenticated by: Tiffanie Astorga MD. Ordering:KATARZYNA Mcgarry MD
[2021-04-13] MEDS: PIPERACILLIN/TAZO 3.375 GM in Normal Saline 50 ML IVPB (12:33)
[2021-04-13] MEDS: Normal Saline 1,000 ML 250 ML IV (12:34)
--- NOTE | 2021-04-13 13:08 | W.PM.HP.N ---
Date of service: 04/13/21 Time of Service: 13:08 Assessment and Plan Assessment and plan (1) Gallstone pancreatitis: Status: Acute Assessment and plan: With supportive care including pain management, pulmonary toilet, Protonix, DVT prophylaxis, hydration -They feel that she has possibly passed a gallstone already. We will see what her bilirubin is in the morning. If her labs do not improve then she is going to need to go to [facility] on Thursday. I am going to start her on antibiotic. If she is still running high white count having abdominal pain and unable to eat, then we may be forced to do a Karime this week. I would prefer that we give time to allow the inflammation to go down and then bring her back in 2 to weeks and do her surgery. I did discuss all this with her and gave her some basic information on the rule of the gallbladder indigestion, stone formation and and in laparoscopic surgery and what she could expect from surgery and the recovery time. We will see how she progresses in the next 48 hours We will continue with supportive care for pancreatitis Keep n.p.o. this time 60 Minutes spent doing the consultation (2) Cholelithiasis and acute cholecystitis without obstruction: Status: Acute (3) Choledocholithiasis with acute cholecystitis: Status: Acute (4) Chronic GERD: Status: Acute (5) Anxiety with depression: Status: Acute (6) Tobacco use: Status: Acute (7) Asthma: Status: Chronic History of Present Illness Narrative: Per ED: is a pleasant 25-year-old female presented with chief complaint of abdominal pain. Contacted by her primary care, Verónica Michael, prior to her coming in for evaluation. Patient reports the pain began 3 days ago and progressively been increasing. States that pain came on after heavy drinking on Thursday. She denies any fevers or chills. She has had some occasional nausea but no vomiting. States the pain is primarily around the umbilicus. Pain is exacerbated when trying to eat. States that over the past 48 hours, she has no p.o. intake. States that she does have a history of angry gallbladder. Believes that she has had gallstones in the past. This imaging was obtained at [place]. She states that this pain does not feel similar as the pain that she experienced previously when she had issues with her gallbladder was associated with fatty foods. She states that she was advised to try dietary changes and that this was successful in preventing pain since the initial onset at the beginning of the year. However, she reports that she does have some financial stressors and has been eating more processed foods recently as well. States her urine is more concentrated than normal but otherwise, no dysuria, increased frequency or urgency. She also reports that she is on the tail end of her menses. Denies any vaginal discomfort or unusual discharge. Patient has a known history of gallstones. She was in [place] a few weeks ago with Karime cystitis. I do not have any records of this per the patient they said that her gallbladder was not infected and she did need to have out. She has been having mild gallbladder attacks off and on for several month. Nothing she has never had attack this bad. She does have 3 children. She notes that fatty foods have been bothering her lately. At this point she is complaining of pain in the right upper quadrant in the periumbilical region. Her nausea is better. She is not jaundiced. I did review her CT. Currently she is hemodynamically stable. She does have a history of asthma. She has not had to use her inhaler many month. She is a smoker. She has been anemic for some time.. Her last delivery was a year ago. She has never had surgery before or and anesthesia. Review of Systems All systems reviewed & are unremarkable except as noted in HPI and below PFSH Medical History Anxiety Anxiety with depression (06/03/17) buspar 15 mg in a.m. and 7.5 mg Asthma inhaler in the past Chronic GERD omeprazole daily Headache migraines rarely Tobacco use 1 ppd, quit 06/2019 Uses contraception IUD Family History Father Alcohol abuse Sister Asthma Mother Bipolar 1 disorder Grandmother Bipolar 1 disorder Social History Smoking/Tobacco Use Status: Current every day Tobacco Type: cigarettes Second Hand Exposure: Yes Smoking risk assessment performed?: Yes Alcohol Intake: never Drug use: Never Substance use type: does not use Adopted: Yes (age 6mo) Foster care: No Household members: spouse, children and other Details: 06/2018 Bonilla Bentley 1yo Number of Children: 2 current occupation: [employer] Sexually active: Yes Current gender identity: female Seatbelt use: always Do you feel safe at home: Yes Do you feel safe in your relationship?: Yes Female Reproductive History Menstrual control method: implanted History History 3 Para 3 Hx # Term Pregnancies 3 Multiple births 0 Hx # Pregnancies 0 Ectopic pregnancies 0 AB induced 0 Hx Number of Living Children 3 AB spontaneous 0 Past Pregnancies Del. Date GA/Weeks # Outcome Route Wgt Sex Labor Lgth Anesthesia Location Prov Complic 04/14/13 40 No Successful vaginal 3316.894 g Female 6 local Tonya 05/20/17 40 No Successful vaginal 3770.487 g Male 12 local Michelle 02/24/20 41 No Successful vaginal 4025.632 g Male 9 hrs 14 min A.RONEY Ribera Delivery Date: 04/14/13 Yola Mott. Pitocin augmentation. Aby Carlos Delivery Date: 05/20/17 Mc, IOL for prodromal labor Aby Carlos Delivery Date: 02/24/20 short umbilical cord noted Hailee Blue Allergies and Home Medications Allergies Allergy/AdvReac Type Severity Reaction Status Date / Time seasonal allergies Allergy Intermediate Uncoded 04/13/21 08:55 Home Medications Medication Instructions Recorded Confirmed Type albuterol sulfate 90 mcg/actuation 2 puff IH Q6H PRN 06/30/18 04/13/21 History aerosol inhaler buspirone 15 mg tablet 15 mg PO BID 06/30/18 04/13/21 History loratadine 10 mg tablet 10 mg PO DAILY 06/30/18 04/13/21 History levonorgestrel 20 mcg/24 hours (6 1 device IY ONCE 05/17/20 04/13/21 History yrs) 52 mg intrauterine device methylphenidate HCl 10 mg PO BID 04/13/21 04/13/21 History pyridoxine (vitamin B6) [Vitamin 25 mg PO BID 04/13/21 04/13/21 History B-6] Exam Narrative Exam Narrative: PHYSICAL EXAM GENERAL APPEARANCE: Alert, healthy appearance, oriented, in no acute distress SKIN: No rashes. No breakdown HYDRATION: Well hydrated HEAD, EYES, EARS, NECK, THROAT: Head is normocephalic, pupils equal, round, reactive to light and accommodation, ocular movement intact, sclera clear and no jaundice. Dentition intact. No sore throat. No jaw pain. No thrush NECK: Supple, Trachea midline. No JVD. LUNGS: normal respiration/nl chest excursion. Clear to auscultation B/l no R/R/W HEART: Regular rate and rhythm, EXTREMITY: No edema or cyanosis no leg pain, redness, swelling. No IV infiltration ABDOMEN: Pain in the right upper quadrant and periumbilical area. The pain in the periumbilical area it is more severe. Does not have peritonitis. She does not hernias. The right upper quadrant pain does radiate around straight through into the back. She has hypoactive bowel sounds. NEURO: no focal neuro deficits. Results Labs Result diagrams: 04/13/21 09:05 04/13/21 09:34 Labs: Laboratory Results - last 24 hr 04/13/21 04/13/21 04/13/21 08:50 09:05 09:05 WBC 13.86 H RBC 5.08 Hgb 10.4 L Hct 32.8 L MCV 64.6 L MCH 20.5 L MCHC 31.7 L RDW 18.7 H Plt Count 290 MPV Immature Gran % 0.4 Neutrophils % 87.0 Lymphocytes % 6.3 Monocytes % 5.8 Eosinophils % 0.4 Basophils % 0.1 Nucleated RBC % 0 Absolute Neutrophils 12.06 H Absolute Lymphocytes 0.87 L Absolute Monocytes 0.80 Absolute Eosinophils 0.06 Absolute Basophils 0.01 RBC Morphology See Below Polychromasia Present Hypochromasia 1+ Anisocytosis 1+ Microcytosis 2+ Sodium Cancelled Potassium Cancelled Chloride Cancelled Carbon Dioxide Cancelled Anion Gap Cancelled BUN Cancelled Creatinine Cancelled Estimated GFR/1.73 m2 Cancelled Glucose Cancelled Calcium Cancelled Magnesium Cancelled Total Bilirubin Cancelled AST Cancelled ALT Cancelled Alkaline Phosphatase Cancelled Total Protein Cancelled Albumin Cancelled Lipase Cancelled Urine Color Yellow Urine Clarity Sl Cloudy Urine pH 6.0 Ur Specific [place] 1.020 Urine Protein 30 H Urine Ketones 40 H Urine Blood Trace-intact H Urine Nitrite Negative Urine Bilirubin Small H Urine Urobilinogen 0.2 Ur Leukocyte Esterase Negative Urine RBC Urine WBC Ur Epithelial Cells Many Urine Crystals Not Applicable Urine Bacteria Many Urine Casts Urine Mucus Not Applicable Ur Culture Indicated? No/Sq. Contamination Urine Glucose Negative 04/13/21 09:34 WBC RBC Hgb Hct MCV MCH MCHC RDW Plt Count MPV Immature Gran % Neutrophils % Lymphocytes % Monocytes % Eosinophils % Basophils % Nucleated RBC % Absolute Neutrophils Absolute Lymphocytes Absolute Monocytes Absolute Eosinophils Absolute Basophils RBC Morphology Polychromasia Hypochromasia Anisocytosis Microcytosis Sodium 139 Potassium 3.2 L Chloride 104 Carbon Dioxide 25.7 Anion Gap 9.3 BUN 11 Creatinine 0.7 Estimated GFR/1.73 m2 >= 60.00 Glucose 83 Calcium 8.0 L Magnesium 1.7 L Total Bilirubin 0.9 AST 132 H ALT 234 H Alkaline Phosphatase 221 H Total Protein 6.6 Albumin 3.3 L Lipase 8334 H Urine Color Urine Clarity Urine pH Ur Specific [place] Urine Protein Urine Ketones Urine Blood Urine Nitrite Urine Bilirubin Urine Urobilinogen Ur Leukocyte Esterase Urine RBC Urine WBC Ur Epithelial Cells Urine Crystals Urine Bacteria Urine Casts Urine Mucus Ur Culture Indicated? Urine Glucose Last Vital Signs Temp 36.4 C L 04/13/21 08:45 Pulse 110 H 04/13/21 08:45 BP 122/77 04/13/21 08:45 Pulse Ox 99 04/13/21 08:45
[2021-04-13 13:30] VITALS: BP 115/74; PULSE 91; RESP 16; TEMP 36.6; O2SAT 99
[2021-04-13] MEDS: Pantoprazole 40 MG VIAL IVP (15:16)
[2021-04-13] MEDS: Nicotine 14 MG/24 HR PATCH TD (15:17)
[2021-04-13] MEDS: Enoxaparin 40 MG/0.4 ML SYR SC (15:17)
[2021-04-13 15:30] VITALS: BP 107/68; PULSE 96; RESP 19; TEMP 37.2; O2SAT 100
[2021-04-13 15:42] LABS: Source Nasal/Nares
[2021-04-13] MEDS: IRON SUCROSE COMPLEX 200 MG in Normal Saline 100 ML 400 MG IVPB (16:03)
[2021-04-13 16:35] LABS: COVID-19 PCR Negative (Negative)
[2021-04-13] MEDS: POTASSIUM CHLORIDE 10 MEQ/100 ML BAG 100 MEQ IVPB (17:07)
[2021-04-13] MEDS: MORPHine 2 MG/ML SYR IV (17:24)
[2021-04-13 18:58] VITALS: BP 128/80; PULSE 102; RESP 16; TEMP 36.6; O2SAT 99
[2021-04-13 19:15] VITALS: BP 108/69; PULSE 102; RESP 18; TEMP 37.1; O2SAT 99
[2021-04-13] MEDS: Methylphenidate 10 MG TAB PO (19:53)
[2021-04-13] MEDS: busPIRone 15 MG TAB PO (19:53)
[2021-04-13] MEDS: Lactated Ringers 1,000 ML 125 ML IV (20:52)
[2021-04-13 23:05] VITALS: BP 110/71; PULSE 103; RESP 16; TEMP 36.6; O2SAT 99
[2021-04-14] MEDS: Ketorolac 15 MG/ML VIAL IVP ×3 (00:12→16:30)
[2021-04-14] MEDS: Normal Saline Flush 10 ML SYR IVP ×4 (00:12→16:30)
[2021-04-14 00:34] LABS: HCT 29.9 % (36.0-46.0); HGB 9.3 g/dL (11.2-15.7); MCH 20.7 pg (27.0-33.0); MCHC 31.1 % (32.0-36.0); MCV 66.4 fL (80-95); Platelet Count 247 10^3/uL (130-400); RDW 19.3 % (11.7-14.6); RDW-SD 45.7 fL; WBC 13.58 10^3/uL (4.4-10.8)
[2021-04-14] MEDS: ACETAMINOPHEN 1,000 MG/100 ML BTL 400 MG IVPB ×3 (02:30→18:09)
[2021-04-14] MEDS: Normal Saline 500 ML 100 ML IV (02:31)
[2021-04-14 07:31] VITALS: BP 108/70; PULSE 105; RESP 15; TEMP 36.6; O2SAT 99
[2021-04-14] MEDS: Methylphenidate 10 MG TAB PO ×2 (07:32→19:33)
[2021-04-14] MEDS: busPIRone 15 MG TAB PO ×2 (07:32→19:33)
[2021-04-14] MEDS: Nicotine 14 MG/24 HR PATCH TD (07:33)
[2021-04-14 08:18] LABS: ALT 154 U/L (14-59); AST 60 U/L (15-37); Albumin 2.8 g/dL (3.4-5.0); Alkaline Phosphatase 224 U/L (46-116); Anion Gap 12.7 mmol/L (3-11); BUN 6 mg/dL (7-18); Bilirubin, Total 0.8 mg/dL (0.2-1.0); CO2 21.3 mmol/L (21.0-32.0); CREATININE 0.6 mg/dL (0.55-1.02); Chloride 106 mmol/L (98-107); Glucose 52 mg/dL (74-106); Potassium 3.1 mmol/L (3.5-5.1); Sodium 140 mmol/L (136-145); Total Protein 6.1 g/dL (6.4-8.2)
[2021-04-14 08:32] LABS: Lipase 4674 U/L (73-393)
[2021-04-14] MEDS: Loratidine 10 MG TAB PO (08:53)
[2021-04-14] MEDS: POTASSIUM CHLORIDE/D5-0.45NACL 1,000 ML 125 MEQ IV (09:59)
--- NOTE | 2021-04-14 10:11 | W.PM.PROGNOT ---
Date of Service Date of service: 04/14/21 Time of Service: 10:12 Assessment and Plan Assessment and plan (1) Choledocholithiasis with acute cholecystitis: Status: Acute (2) Cholelithiasis and acute cholecystitis without obstruction: Status: Acute (3) Gallstone pancreatitis: Status: Acute Assessment and plan: T. Raudel is nl today and the rest of her enzymes are normalizing. Her s/s are improved today as well. Continue conservative medical management. Will try clears today and see how this affects her labs in am. Poss d/c in am and than lap leigh in next 2-3 wks. Low fat diet. Avoid pork adn high fat dairy. Supportive cares 30 mins spent today, >50% of the time spent with the patient today was spent in counseling regarding; medications, lifestyle modifications and/or coordinating care. (4) Acute cholecystitis: Status: Acute (5) Acute pancreatitis: Status: Acute Subjective Subjective Interval history since last seen: Pt is doing well. no headaches. No CP or SOB. no productive cough. no dysuria. no leg pain or swelling. Minimal lorenzo-umbilcal pain. no RUQ pain today. no N/V today. She is hungry no diarrhea. Her last meal prior to the s/s starting was pork. Exam Narrative Exam Narrative: PHYSICAL EXAM GENERAL APPEARANCE: Alert, healthy appearance, oriented, in no acute distress SKIN: No rashes. No breakdown HYDRATION: Well hydrated HEAD, EYES, EARS, NECK, THROAT: Head is normocephalic, pupils equal, round, reactive to light and accommodation, ocular movement intact, sclera clear and no jaundice. Dentition intact. No sore throat. No jaw pain. No thrush NECK: Supple, Trachea midline. No JVD. LUNGS: normal respiration/nl chest excursion. Clear to auscultation B/l no R/R/W HEART: Regular rate and rhythm, EXTREMITY: No edema or cyanosis no leg pain, redness, swelling. No IV infiltration ABDOMEN: non tender to palpation, no masses or distention, no hernias. Normal bowel sounds NEURO: no focal neuro deficits. Objective Last Vital Signs Temp 36.6 C 04/14/21 07:31 Pulse 105 H 04/14/21 07:31 Resp 15 04/14/21 07:31 BP 108/70 04/14/21 07:31 Pulse Ox 99 04/14/21 07:31 Laboratory Results - last 24 hr 04/13/21 04/13/21 04/13/21 09:34 15:01 15:20 WBC RBC Hgb Hct MCV MCH MCHC RDW Plt Count MPV Sodium 139 Potassium 3.2 L Chloride 104 Carbon Dioxide 25.7 Anion Gap 9.3 BUN 11 Creatinine 0.7 Estimated GFR/1.73 m2 >= 60.00 Glucose 83 Calcium 8.0 L Magnesium 1.7 L Total Bilirubin 0.9 AST 132 H ALT 234 H Alkaline Phosphatase 221 H Total Protein 6.6 Albumin 3.3 L Lipase 8334 H COVID-19 Source Cancelled Nasal/Nares SARS-CoV-2 (PCR) Cancelled Negative 04/14/21 04/14/21 00:15 06:19 WBC 13.58 H RBC 4.50 Hgb 9.3 L Hct 29.9 L MCV 66.4 L MCH 20.7 L MCHC 31.1 L RDW 19.3 H Plt Count 247 MPV Sodium 140 Potassium 3.1 L Chloride 106 Carbon Dioxide 21.3 Anion Gap 12.7 H BUN 6 L Creatinine 0.6 Estimated GFR/1.73 m2 >= 60.00 Glucose 52 L Calcium 8.0 L Magnesium Total Bilirubin 0.8 AST 60 H ALT 154 H Alkaline Phosphatase 224 H Total Protein 6.1 L Albumin 2.8 L Lipase 4674 H COVID-19 Source SARS-CoV-2 (PCR)
[2021-04-14] MEDS: POTASSIUM CHLORIDE 10 MEQ/100 ML BAG 50 MEQ IVPB (10:58)
[2021-04-14] MEDS: MAGNESIUM SULFATE 1 GM/100 ML BAG IVPB (10:59)
[2021-04-14] MEDS: Pantoprazole 40 MG VIAL IVP (13:26)
[2021-04-14] MEDS: Enoxaparin 40 MG/0.4 ML SYR SC (13:27)
[2021-04-14 16:30] VITALS: BP 111/76; PULSE 109; RESP 13; TEMP 37.3; O2SAT 98
[2021-04-14] MEDS: POTASSIUM CHLORIDE/D5-0.45NACL 1,000 ML 100 MEQ IV (22:05)
[2021-04-14 23:09] VITALS: BP 105/69; PULSE 104; RESP 16; TEMP 37.5; O2SAT 99
[2021-04-14] MEDS: Calcium Carbonate *TUMS* 500 MG CHEW 1000 MG PO (23:34)
[2021-04-15] MEDS: PIPERACILLIN/TAZO 3.375 GM in Normal Saline 50 ML 12.5 ML IVPB ×2 (00:05→08:04)
[2021-04-15] MEDS: ACETAMINOPHEN 1,000 MG/100 ML BTL 400 MG IVPB ×2 (01:53→10:43)
[2021-04-15] MEDS: Ketorolac 15 MG/ML VIAL IVP (03:52)
[2021-04-15] MEDS: Normal Saline Flush 10 ML SYR IVP ×3 (03:55→13:43)
--- NOTE | 2021-04-15 07:00 | DI.MRI_ITS ---
Exam(s) MR ABDOMEN WO EXAM: MR ABDOMEN WO CLINICAL HISTORY: choledocholithiasis TECHNIQUE: Multiplanar multisequence MRI was performed with both pre and post contrast infused seque nces. Contrast injected sequences were performed following IV injection of cc of Dotarem. COMPARISON: CT CT ABDOMEN PELVIS W from 04/13/[address] ABDOMEN PELVIS W from 04/13/2021 FINDINGS: VISUALIZED LUNG BASES: No pleural effusions evident. There is a small amount of ascites. LIVER: No focal hepatic lesions evident. Very slight prominence of intrahepatic ducts. MRCP/BILIARY: There are multiple small gallstones in the gallbladder lumen. Also in the gallbladder neck. The gallbladder is not distended.No obvious calculi in the CBD. CBD size is upper normal. Th ere appears to be a possible stricture in the upper CBD just below the junction of the right and left hepatic lobes. CBD exhibits normal diameter at the level the pancreatic head PANCREAS: There is no evidence of pancreatic mass nor dilatation of the pancreatic duct.However, ther e is slight fluid around the pancreatic tail region and spleen, and correlation with any clinical sig ns of pancreatitis is recommended. There is no distinct pancreatic mass. SPLEEN: Spleen is not enlarged and there are no intrasplenic lesions. ADRENALS: There are no significant adrenal masses. KIDNEYS: No solid renal masses. No hydronephrosis nor perirenal fluid.No cysts evident. ABDOMINAL AORTA: Not enlarged and there is no significant para-aortic adenopathy. ANTERIOR ABDOMINAL WALL/GI: There is no evidence of significant anterior abdominal wall hernia in the field of view of this study.Is no evidence of obvious bowel obstruction. OSSEOUS: There are no lytic osseous lesions in the field of view of this study. IMPRESSION: 1. Cholelithiasis. The gallbladder is not distended but is filled with numerous small gallstones and these are also seen at the level the gallbladder neck. No obvious calculi seen within the CBD. CBD diameter is upper normal. Slight prominence of intrahepatic ducts. There appears to be a subtle st ricture in the upper CBD just below the junction of the right and left hepatic ducts. 2. Some fluid around the pancreas is noted and correlation any signs of pancreatitis recommended. So me fluid is seen around pancreatic tail and spleen on recent CT scan. Either related to the pancreas or adjacent splenic flexure of the colon. 3. As the next step appear I recommend repeat CT scan with abundant oral contrast (to reach the dista l colon) as well as IV contrast. DATA REPOSITORY:
[2021-04-15 07:30] VITALS: BP 108/73; PULSE 92; RESP 17; TEMP 36.5; O2SAT 98
[2021-04-15 07:31] LABS: ALT 99 U/L (14-59); AST 23 U/L (15-37); Albumin 2.6 g/dL (3.4-5.0); Alkaline Phosphatase 179 U/L (46-116); Anion Gap 8.4 mmol/L (3-11); BUN 4 mg/dL (7-18); Bilirubin, Total 0.5 mg/dL (0.2-1.0); CO2 24.6 mmol/L (21.0-32.0); CREATININE 0.6 mg/dL (0.55-1.02); Calcium 8.1 mg/dL (8.5-10.1); Chloride 108 mmol/L (98-107); Glucose 92 mg/dL (74-106); Lipase 538 U/L (73-393); Sodium 141 mmol/L (136-145)
[2021-04-15 07:33] LABS: Potassium 2.9 mmol/L (3.5-5.1)
[2021-04-15] MEDS: Loratidine 10 MG TAB PO (08:03)
[2021-04-15] MEDS: Methylphenidate 10 MG TAB PO (08:03)
[2021-04-15] MEDS: busPIRone 15 MG TAB PO (08:03)
[2021-04-15] MEDS: Nicotine 14 MG/24 HR PATCH TD ×2 (08:04→11:58)
--- NOTE | 2021-04-15 08:25 | W.PM.PROGNOT ---
Date of Service Date of service: 04/15/21 Time of Service: 08:25 Assessment and Plan Assessment and plan (1) Choledocholithiasis with acute cholecystitis: Status: Acute (2) Cholelithiasis and acute cholecystitis without obstruction: Status: Acute (3) Gallstone pancreatitis: Status: Acute Assessment and plan: Abdominal complaints are improving Labs are improving also Continue conservative medical management. Tolerated clear liquids last night Will see how she tolerates her diet today. Possible d/c home later today and will have her follow up in the office. Will need Cholecystectomy in 2-3 weeks. (4) Acute cholecystitis: Status: Acute (5) Acute pancreatitis: Status: Acute Subjective Subjective Interval history since last seen: Patient reports currently being comfortable, however that she has not attempted to get out of bed yet. Denies any fevers or chills over night. Exam Const General: cooperative, healthy appearing and comfortable Orientation: alert and oriented x3 Resp Effort & Inspection: normal respiratory effort, no audible wheezes and no cough GI Palpation: soft, no guarding and tender in the LUQ and in the RUQ Objective Last Vital Signs Temp 37.5 C 04/14/21 23:09 Pulse 104 H 04/14/21 23:09 Resp 16 04/14/21 23:09 BP 105/69 04/14/21 23:09 Pulse Ox 99 04/14/21 23:09 Laboratory Results - last 24 hr 04/14/21 04/15/21 06:19 06:08 Sodium 140 141 Potassium 3.1 L 2.9 L Chloride 106 108 H Carbon Dioxide 21.3 24.6 Anion Gap 12.7 H 8.4 BUN 6 L 4 L Creatinine 0.6 0.6 Estimated GFR/1.73 m2 >= 60.00 >= 60.00 Glucose 52 L 92 Calcium 8.0 L 8.1 L Total Bilirubin 0.8 0.5 AST 60 H 23 ALT 154 H 99 H Alkaline Phosphatase 224 H 179 H Total Protein 6.1 L 6.0 L Albumin 2.8 L 2.6 L Lipase 4674 H 538 H
[2021-04-15] MEDS: POTASSIUM CHLORIDE 10 MEQ/100 ML BAG 50 MEQ IVPB ×2 (09:27→11:34)
--- NOTE | 2021-04-15 09:44 | PDOC.CMIN ---
- If Service Date Differs Date of service: 04/15/21 Time of Service: 10:10 Care Management Initial Assess REASON FOR HOSPITALIZATION:: Cholecystitis, choledocholithiasis, pancreatitis PAST MEDICAL HISTORY/PAST SURGICAL HISTORY:: Anxiety. Anxiety with depression (06/03/17). buspar 15 mg in a.m. and 7.5 mg. Asthma. inhaler in the past. Chronic GERD. omeprazole daily. Headache. migraines rarely. Tobacco use. 1 ppd, quit 06/2019. Uses contraception. IUD
--- NOTE | 2021-04-15 13:02 | W.PM.DS.N ---
Date of service: 04/15/21 Time of Service: 13:04 DS: Diagnosis Discharge Diagnosis (1) Choledocholithiasis with acute cholecystitis: Status: Acute (2) Cholelithiasis and acute cholecystitis without obstruction: Status: Acute (3) Gallstone pancreatitis: Status: Acute (4) Acute cholecystitis: Status: Acute (5) Acute pancreatitis: Status: Acute Discharge Plan Disposition Patient Disposition: HOME Condition: Improving Discharge Details Reason For Visit: Cholecystitis,Choledocholithiasis,Pancreatitis Admit Date/Time: 04/13/21 12:11 Admit Provider: Anita Rosales Attending Provider: Anita Rosales Primary Care Provider: Temitope Jeronimo Home Meds and New Rx's Prescriptions: No Action albuterol sulfate [ProAir HFA] 90 mcg/actuation HFA aerosol inhaler 2 puff IH Q6H PRNRF: 0 buspirone 15 mg tablet 15 mg PO BID RF: 0 loratadine [Claritin] 10 mg tablet 10 mg PO DAILY RF: 0 Mirena 20 mcg/24 hours (5 yrs) 52 mg intrauterine device 1 device IY ONCE RF: 0 methylphenidate HCl 5 mg tablet 10 mg PO BID RF: 0 pyridoxine (vitamin B6) [Vitamin B-6] 50 mg tablet 25 mg PO BID RF: 0 Discharge Instructions Additional Instructions: -Follow-up with Dr. Rosales in 1 week. -low fat diet avoid Pork and dairy. High-fat foods include: ? Foods that are fried, like British fries and potato chips ? High-fat meats, such as kruger, bologna, sausage, ground beef, and ribs, pork products ? High-fat dairy products, such as cheese, ice cream, cream, whole milk, and sour cream ? Pizza ? Foods made with lard or butter ? Creamy soups or sauces ? Meat gravies ? Chocolate ? Oils, such as palm and coconut oil ? Skin of chicken or turkey -nuts/nut butters and avacadoes -Try to not smoke or really cut down. -It is ok to shower. -You may find that your appetite is smaller. Eat 3-6 small meals throughout the day. It is important to drink lots of water after surgery, 6-10 glasses a day. -If you were given an incentive spirometry (breathing professor of physics?), continue to do this 10x/hour while awake. -We do want you up walking, at least 5-6 times per day. This is very important to prevent pneumonia and blood clots. You can climb stairs, take them slowly. -You may find that you are very tired, this is normal. Activity:: see above Equipment/Supplies:: No Equipment Needed Diet:: low fat Discharge Orders Discharge Orders: Discharge Order (Routine); Ordered 04/15/21 Ordered By: Anita Rosales DS: Summary Time Spent with Patient providing and/or coordinating discharge services: Less than 30 minutes Status at Discharge Functional status at discharge: independent ambulation Overall status at discharge: patient is progressing back to baseline Mental Status: mental status grossly normal Speech and Movement: speech and movement normal Mood: congruent mood Affect: normal affect Exam Psych Mental Status: mental status grossly normal Speech and Movement: speech and movement normal Mood: congruent mood Affect: normal affect DS: Data Vitals/I&O Vitals and I&O: Vital Signs Temperature 36.5 C 04/15/21 07:30 Temperature Source Temporal Artery Scan 04/15/21 07:30 Pulse 92 H 04/15/21 07:30 Pulse Rhythm Regular 04/15/21 08:00 Respiratory Rate 17 04/15/21 07:30 Respiratory Effort Non-Labored 04/15/21 08:00 Respiratory Depth Normal 04/15/21 08:00 Respiratory Pattern Normal 04/15/21 08:00 Blood Pressure 108/73 04/15/21 07:30 Blood Pressure Position Sitting 04/13/21 08:45 Pulse Oximetry 98 04/15/21 07:30 Oxygen Delivery Method Room Air 04/15/21 07:30 Oxygen Flow Rate 0 04/15/21 07:30 Pain Level 0 04/14/21 23:09 Comment 04/14/21 23:09 Intake & Output 04/14/21 04/15/21 04/15/21 23:59 11:59 23:59 Intake Total 2105 / 2475 250 / 250 Output Total 3300 / 4150 1350 / 1350 Balance -1195 / -1675 -1100 / -1100 Intake: IV 1150 / 1400 250 / 250 Oral 955 / 1075 Output: Urine 3300 / 4150 1350 / 1350 Other: Urine Color Light Katherine Yellow Urine Appearance Clear Clear Urine Odor Normal Normal Comment pt utilizing bedside commode. Stool Size Moderate Stool Characteristics Soft Brown Voiding Methods Toilet Bedside Commode Data Completed and Pending Labs on day of discharge: Labs from last 24 hours 04/15/21 04/13/21 06:08 09:05 Sodium 141 Potassium 2.9 L Chloride 108 H Carbon Dioxide 24.6 Anion Gap 8.4 BUN 4 L Creatinine 0.6 Estimated GFR/1.73 m2 >= 60.00 Glucose 92 Calcium 8.1 L Total Bilirubin 0.5 AST 23 ALT 99 H Alkaline Phosphatase 179 H Total Protein 6.0 L Albumin 2.6 L Lipase 538 H Path Cons Comment SEE COMMENT PFSH Medical History Anxiety Anxiety with depression (06/03/17) buspar 15 mg in a.m. and 7.5 mg Asthma inhaler in the past Chronic GERD omeprazole daily Headache migraines rarely Tobacco use 1 ppd, quit 06/2019 Uses contraception IUD Family History Father Alcohol abuse Sister Asthma Mother Bipolar 1 disorder Grandmother Bipolar 1 disorder Social History Smoking/Tobacco Use Status: Current every day Tobacco Type: cigarettes Second Hand Exposure: Yes Smoking risk assessment performed?: Yes Alcohol Intake: never Drug use: Never Substance use type: does not use Adopted: Yes (age 6mo) Foster care: No Household members: spouse, children and other Details: 06/2018 Bonilla Bentley 1yo Number of Children: 2 current occupation: [employer] Sexually active: Yes Current gender identity: female Seatbelt use: always Do you feel safe at home: Yes Do you feel safe in your relationship?: Yes Female Reproductive History Menstrual control method: implanted History History 3 Para 3 Hx # Term Pregnancies 3 Multiple births 0 Hx # Pregnancies 0 Ectopic pregnancies 0 AB induced 0 Hx Number of Living Children 3 AB spontaneous 0 Past Pregnancies Del. Date GA/Weeks # Outcome Route Wgt Sex Labor Lgth Anesthesia Location Prov [facility] 04/14/13 40 No Successful vaginal 3316.894 g Female 6 local Tonya 05/20/17 40 No Successful vaginal 3770.487 g Male 12 local Michelle 02/24/20 41 No Successful vaginal 4025.632 g Male 9 hrs 14 min A.RONEY Ribera Delivery Date: 04/14/13 Yola Mott. Pitocin augmentation. Aby Carlos Delivery Date: 05/20/17 Mc, IOL for prodromal labor Aby Carlos Delivery Date: 02/24/20 short umbilical cord noted Hailee Blue
[2021-04-15] MEDS: POTASSIUM CHLORIDE 10 MEQ/100 ML BAG 100 MEQ IVPB (13:44)
[2021-04-15] MEDS: Pantoprazole 40 MG VIAL IVP (13:44)
[2021-04-15] MEDS: Enoxaparin 40 MG/0.4 ML SYR SC (13:44)
--- NOTE | 2021-04-15 14:07 | CHAPLAIN ---
Claudia was resting in bed when I visited, watching Netflix on her iPad. She has three children and has been in touch with them through [employer]. She and her and kids live in [facility] and her parents live in [place] and help with the kids. Claudia said she is comfortable, and waiting to her what the plan for her care will be. I explained my role and offered support.
== END 2021-04-15 14:50 | disposition home or self-care (01) | DRG 439 ==
LOC: ER 12:41 → MS 13:37
PROVIDERS: Admitting Provider Surgery; Emergency Provider Physician Assistant; PCP Nurse Practitioner Family; Visit Provider Surgery
DX: K85.10 Biliary acute pancreatitis without necrosis or infection (principal); K80.62 Calculus of gallbladder and bile duct with acute cholecystitis without obstruction; K21.9 Gastro-esophageal reflux disease without esophagitis; F41.8 Other specified anxiety disorders; J45.909 Unspecified asthma, uncomplicated; F17.210 Nicotine dependence, cigarettes, uncomplicated; D64.9 Anemia, unspecified; Z20.822 Contact with and (suspected) exposure to COVID-19
CPT/HCPCS: 36415; 80053; 81025; 83690; 85027; 87635; 96361; 96365; 96367; 96375; 96376; 99285; J1650; 74177; 74181; 81003; 81015; 83735; 85025; J0131; J1756; J1885; J2270; J2405; J2543; J3475; J3480; J3490

== ENCOUNTER 2021-04-22 15:59 | Outpatient (REF) | payer MEDICAID, SELFPAY ==
[2021-04-22 15:31] LABS: Abs Immature Grans 0.01 10^3/uL (0.0-0.06); Absolute Basophil Count 0.03 10^3/uL (0.0-0.2); Absolute Eosinophil Count 0.11 10^3/uL (0.0-0.7); Absolute Lymphocyte Count 2.03 10^3/uL (1.2-3.4); Absolute Monocyte Count 0.54 10^3/uL (0.1-0.8); Absolute Neutrophil Count 4.16 10^3/uL (1.2-6.7); Basophils % 0.4; Eosinophils % 1.6; HCT 33.5 % (36.0-46.0); HGB 10.4 g/dL (11.2-15.7); Immature Grans % 0.1; Lymphocytes % 29.5; MCH 20.5 pg (27.0-33.0); MCV 66.1 fL (80-95); MPV 10.5 fL (8.0-11.0); Monocytes % 7.8; Neutrophils % 60.6; Nucleated RBC 0 %; RBC 5.07 10^6/uL (3.93-5.22); RDW 21.6 % (11.7-14.6); RDW-SD 47.5 fL; WBC 6.88 10^3/uL (4.4-10.8)
[2021-04-22 15:34] LABS: ALT 38 U/L (14-59); AST 14 U/L (15-37); Albumin 3.6 g/dL (3.4-5.0); Alkaline Phosphatase 127 U/L (46-116); Amylase 51 U/L (25-115); BUN 9 mg/dL (7-18); Bilirubin, Total 0.2 mg/dL (0.2-1.0); CREATININE 0.7 mg/dL (0.55-1.02); Calcium 8.7 mg/dL (8.5-10.1); Chloride 105 mmol/L (98-107); Glucose 88 mg/dL (74-106); Potassium 4.2 mmol/L (3.5-5.1); Sodium 140 mmol/L (136-145); Total Protein 7.8 g/dL (6.4-8.2)
[2021-04-22 15:44] LABS: Diff Comment RBC Morph Reviewed; Platelet Count 399 10^3/uL (130-400)
[2021-04-22 15:45] LABS: Anisocytosis 2+; Microcytosis 2+; Poikilocytes 1+; Polychromasia Present
== END 2021-04-22 16:00 | disposition home or self-care (01) ==
LOC: LBN 15:59
PROVIDERS: PCP Nurse Practitioner Family; Visit Provider Surgery
DX: K80.42 Calculus of bile duct with acute cholecystitis without obstruction (principal); K85.10 Biliary acute pancreatitis without necrosis or infection; K85.90 Acute pancreatitis without necrosis or infection, unspecified; D50.9 Iron deficiency anemia, unspecified
CPT/HCPCS: 80053; 82150; 85025

== ENCOUNTER 2021-05-13 03:06 | Outpatient (CLI) | payer MEDICAID, SELFPAY ==
[2021-05-13 13:24] LABS: Source Nasal/Nares
[2021-05-13 16:07] LABS: COVID-19 PCR Negative (Negative)
== END 2021-05-13 03:07 | disposition home or self-care (01) ==
LOC: LBO 03:07
PROVIDERS: PCP Nurse Practitioner Family; Visit Provider Surgery
DX: Z20.822 Contact with and (suspected) exposure to COVID-19 (principal); Z01.818 Encounter for other preprocedural examination
CPT/HCPCS: 87635

== ENCOUNTER 2021-05-13 03:54 | Outpatient (CLI) | payer MEDICAID, SELFPAY | END 2021-05-13 03:55 | disposition home or self-care (01) | LOC: LBO 03:54 | PROVIDERS: PCP Nurse Practitioner Family; Visit Provider Surgery | DX: K80.42 Calculus of bile duct with acute cholecystitis without obstruction (principal); D50.9 Iron deficiency anemia, unspecified; Z01.818 Encounter for other preprocedural examination; Z01.812 Encounter for preprocedural laboratory examination; Z20.822 Contact with and (suspected) exposure to COVID-19 | CPT/HCPCS: 36415; 86850; 86900; 86901; 87635 ==

== ENCOUNTER 2021-05-14 06:15 | Day surgery (SDC) | payer MEDICAID, SELFPAY ==
[2021-05-14] VITALS (12 sets, daily range): BP systolic 99–118; BP diastolic 49–76; PULSE 71–87; RESP 14–20; TEMP 36–36.6; O2SAT 95–100; BMI 29.3
[2021-05-14] MEDS: Gabapentin 300 MG CAP PO (06:46)
[2021-05-14] MEDS: Acetaminophen 500 MG TAB 1000 MG PO (06:46)
--- NOTE | 2021-05-14 06:59 | NUR.NOTE ---
Iron sucrose infusing, started 0650: vitals: 36.3, 72, 18, 97/53, 99% at 0657. 36.5, 72, 16, 102/61, 99% at 0710.Nursing Note:
[2021-05-14] MEDS: Lactated Ringers 1,000 ML 80 ML IV (07:00)
--- NOTE | 2021-05-14 07:06 | ANES.PREOP_ITS ---
General Info Date of Service Date Performed: 05/14/21 Height: 5 ft 5.75 in Weight: 81.9 kg Body Mass Index (BMI): 29.3 Surgical Procedure: Operation Date: 05/14/21 07:40 Proposed Procedures Side Surgeon p Cholecystectomy Laparoscopic possible open Anita Rosales, Meds Allergies and Home Medications Allergies Allergy/AdvReac Type Severity Reaction Status Date / Time seasonal allergies Allergy Intermediate Uncoded 05/14/21 06:36 Home Medication Medication Instructions Recorded albuterol sulfate 90 mcg/actuation 2 puff IH Q6H PRN 06/30/18 aerosol inhaler buspirone 15 mg tablet 15 mg PO BID 06/30/18 loratadine 10 mg tablet 10 mg PO DAILY 06/30/18 levonorgestrel 20 mcg/24 hours (6 1 device IY ONCE 05/17/20 yrs) 52 mg intrauterine device methylphenidate HCl 10 mg PO BID 04/13/21 pyridoxine (vitamin B6) [Vitamin 25 mg PO BID 04/13/21 B-6] tramadol 50 mg tablet 50 mg PO Q6H PRN #7 tab 04/16/21 ibuprofen 600 mg PO TID PRN 05/14/21 Current Visit Medications: Current Medications Generic Name Dose Route Start Last Admin Trade Name Freq PRN Reason Stop Dose Admin Acetaminophen 1,000 mg 05/14/21 06:00 05/14/21 06:46 Acetaminophen 500 Mg Tab PO 05/14/21 16:00 1,000 mg PREOP SCOTT Administration Gabapentin 300 mg 05/14/21 06:00 05/14/21 06:46 Gabapentin 300 Mg Cap PO 05/14/21 16:00 300 mg PREOP SCOTT Administration Ringer's Solution 1,000 mls @ 80 mls/hr 05/14/21 06:00 IV 06/12/21 23:59 INFUSION SCOTT Iron Sucrose 200 mg/ Sodium 110 mls @ 440 mls/hr 05/14/21 06:00 Chloride IVPB 05/14/21 16:00 PREOP SCOTT Cefazolin Sodium 2,000 mg/ 100 mls @ 200 mls/hr 05/14/21 06:00 Sodium Chloride IVPB 05/14/21 16:00 PREOP SCOTT IV Miscellaneous Supplies 1 each 05/14/21 06:00 Iv Access IV 06/12/21 23:59 DIRECTED SCOTT Sodium Chloride 0 ml 05/14/21 06:00 Normal Saline Flush 10 Ml Syr IV 06/12/21 23:59 PRN PRN Sodium Chloride 0 ml 05/14/21 06:00 Normal Saline 10 Ml Vial IJ 06/12/21 23:59 DIRECTED PRN Sterile Water 0 ml 05/14/21 06:00 Water,Injection,Sterile 10 Ml Vial IJ 06/12/21 23:59 DIRECTED PRN PFSH Active Problems Active Problems: Problem Status Onset Code IUD check up Z30.431 Right axillary swelling M79.89 Acute cholecystitis K81.0 Acute pancreatitis K85.90 Gallstone pancreatitis K85.10 Cholelithiasis and acute cholecystitis without obstruction Choledocholithiasis with acute cholecystitis K80.42 Chronic iron deficiency anemia D50.9 Chronic GERD K21.9 Anxiety with depression 06/03/17 F41.8 Tobacco use Z72.0 Asthma J45.909 Anxiety F41.9 Headache R51 Medical History Medical History Anxiety Anxiety with depression (06/03/17) buspar 15 mg in a.m. and 7.5 mg Asthma inhaler in the past Chronic GERD omeprazole daily Headache migraines rarely Hx of iron deficiency anemia Tobacco use 1 ppd, quit 06/2019 Uses contraception IUD Surgical History Surgical History (Updated 05/14/21 @ 06:40 by Li Solorzano) History of wisdom tooth extraction Tobacco Smoking/Tobacco Use Status: Current every day Tobacco Type: cigarettes Smoking cigarettes per day: 10 Second hand exposure: Yes Alcohol Alcohol Intake: current Alcohol intake frequency: a few times a month Alcohol type: beer Substance Use Substance use: Never Substance use type: does not use Details: alcohol: over one month ago Prental History History 3 Para 3 Hx # Term Pregnancies 3 Multiple births 0 Hx # Pregnancies 0 Ectopic pregnancies 0 AB induced 0 Hx Number of Living Children 3 AB spontaneous 0 Past Pregnancies Del. Date GA/Weeks # Outcome Route Wgt Sex Labor Lgth Anesthes ia Location [facility] 04/14/13 40 No Successful vaginal 3316.894 g Female 6 [facility] Tonya 05/20/17 40 No Successful vaginal 3770.487 g Male 12 local Michelle 02/24/20 41 No Successful vaginal 4025.632 g Male 9 hrs 14 min ARONEY Anthony Delivery Date: 04/14/13 Yola Mott. Pitocin augmentation. Aby Carlos Delivery Date: 05/20/17 Mc, IOL for prodromal labor Aby Carlos Delivery Date: 02/24/20 short umbilical cord noted Hailee Blue Vital Signs and Lab Results Vital Signs Most Recent Vital Signs in EMR: Most Recent Vital Signs Temp Pulse Resp BP Pulse Ox 36.6 C 85 16 108/67 98 05/14/21 06:50 05/14/21 06:50 05/14/21 06:50 05/14/21 06:50 05/14/21 06:50 Point of Care Results Point of Care Results: POC- Test(urine) Negative 05/14/21 06:35 Lab Results Blood Type / Crossmatch: Patient ABO/Rh B Positive 05/13/21 10:56 05/13/21 Antibody Screen NEGATIVE 05/13/21 10:56 05/13/21 Complete Blood Count: White Blood Count 6.88 10^3/uL (4.4-10.8) 04/22/21 14:25 04/22/21 Red Blood Count 5.07 10^6/uL (3.93-5.22) 04/22/21 14:25 04/22/21 Hemoglobin 10.4 g/dL (11.2-15.7) L 04/22/21 14:25 04/22/21 Hematocrit 33.5 % (36.0-46.0) L 04/22/21 14:25 04/22/21 Platelet Count 399 10^3/uL (130-400) 04/22/21 14:25 04/22/21 Complete Metabolic Panel: Sodium Level 140 mmol/L (136-145) 04/22/21 14:25 04/22/21 Potassium Level 4.2 mmol/L (3.5-5.1) 04/22/21 14:25 04/22/21 Chloride Level 105 mmol/L (98-107) 04/22/21 14:25 04/22/21 Carbon Dioxide Level 25.0 mmol/L (21.0-32.0) 04/22/21 14:25 04/22/21 Blood Urea Nitrogen 9 mg/dL (7-18) 04/22/21 14:25 04/22/21 Creatinine 0.7 mg/dL (0.55-1.02) 04/22/21 14:25 04/22/21 Estimated GFR/1.73 m2 >= 60.00 (mL/min/1.73m2) 04/22/21 14:25 04/22/21 Calcium Level 8.7 mg/dL (8.5-10.1) 04/22/21 14:25 04/22/21 Albumin 3.6 g/dL (3.4-5.0) 04/22/21 14:25 04/22/21 Glucose Level 88 mg/dL (74-106) 04/22/21 14:25 04/22/21 Liver Function Panel: Alanine Aminotransferase (ALT/SGPT) 38 U/L (14-59) 04/22/21 14:25 04/22/21 Aspartate Amino Transf (AST/SGOT) 14 U/L (15-37) L 04/22/21 14:25 04/22/21 Coagulation Panel: No Data to Display Cardiac Panel: No Data to Display Arterial Blood Gas: No Data to Display Venous Blood Gas: No Data to Display Pancreas Panel: Amylase Level 51 U/L (25-115) 04/22/21 14:25 04/22/21 Lipase 538 U/L (73-393) H 04/15/21 06:08 04/15/21 Thyroid Panel: No Data to Display Infectious Disease: Coronavirus (COVID-19)(PCR) Negative (Negative) 05/13/21 11:22 05/13/21 Coronavirus 2019 Source Nasal/Nares 05/13/21 11:22 05/13/21 Blood Cultures: No Data to Display Toxicology Panel: No Data to Display Panel: No Data to Display Anesthesia Assessment and Plan Anesthesia History Personal History: No History of General Anesthesia Family History: No Family History of Anesthesia Complications Exercise Tolerance Exercise Tolerance: Metabolic Equivalents>4 Pertinent Negatives Pertinent Negatives: No Symptoms of GERD, No Major Cardiovascular Symptoms or Complaints, No History of CVA/TIA and Other (Asthma, rescue inhaler used 1 month ago) Cardiac & Pulmonary Exam Cardiac Exam: Normal S1/S2 Heart Sounds Pulmonary Exam: Clear Bilateral Breath Sounds Airway Exam Known Difficult Airway: No Mallampati Class: 2 Mouth Opening: Normal (> 3cm) Thyromental Distance: Greater than 3 cm Neck Range of Motion: Full ROM Neck Circumference: Normal Teeth Condition: Normal Dentition ASA Classification ASA Score: ASA 2 Emergency Case?: No NPO Status NPO Status: NPO Clears >2 hours, Solids >8 hours Status Status: Negative HCG Anesthesia Plan Resuscitation Status: Full Code Anesthesia Technique: General Anesthesia Airway Planned: Endotracheal Tube Monitors Used: Standard Monitors
[2021-05-14] MEDS: ceFAZolin 2,000 MG in Normal Saline 100 ML 200 MG IVPB (07:49)
[2021-05-14] MEDS: Cellulose,Oxidized 4X8 1 PACKET MC (08:45)
--- NOTE | 2021-05-14 08:48 | GB_PTH ---
PATIENT: Claudia Greco LOC: GERI U#:[id number] AGE/SX: 25/F ROOM: RE05/14/[address]: Anita Rosales : 1995 BED: DIS: 05/14/2021 SPEC #: [id number] RECD: 05/14/21 12:34 STATUS: AVIVA REQ #: [id number] CANDACE: 05/14/21 08:[address]: Anita Rosales DEPT: Surgical Specimen RECD BY: Juliana Vergara ENTERED: 05/14/21 12:34 SP TYPE: GB OTHR DR: Temitope Jeronimo Tissues: 1 - GALLBLADDER Procedures: GROSS AND MICRO LEVEL 3 Comments: [id number]
[2021-05-14] MEDS: Bupivacaine LIPOSOME/PF 133 MG/10 ML VIAL IJ (08:50)
--- NOTE | 2021-05-14 09:01 | ROE_ITS ---
Date of service: 05/14/21 Time of Service: 09:01 Operative Note Operative Note DATE OF PROCEDURE: 05/14/21 PRE-OP DIAGNOSIS: chronic leigh e/stones POST-OP DIAGNOSIS: same lap leigh SURGEON: Anita Polanco [employer] INSTRUCTOR: Edwina Whitt ANESTHESIA TYPE: General LMA/ETT Refer to Anesthesia Record ESTIMATED BLOOD LOSS: 5 PATHOLOGY: other COMPLICATIONS: None Patient was transported to: PACU Patient's condition: stable Procedure Description: The pt is seen at the request of there PCP regarding acute on chronic cholecystitis, cholelithiasis. The pt has failed outpt conservative medical measures and is here today for laparoscopic cholecystectomy. Informed consent was obtained, explaining risks and benefits of the procedure including but not limited to bleeding, infection, pneumonia, blood clots, possible damage to bowel, bladder, blood vessels, bile ducts, possible open procedure, complications of general anesthesia and other unforetold complic ations. PROCEDURE: The patient agrees and is brought to the operative room suite and placed in supine position. Anesthesia was administered per the Department of Anesthesia. The patient did receive IV antibiotics. NG tube and Cleaning catheter are placed. The patient was prepped and draped in the usual sterile fashion using DuraPrep scrub solution. Pause for the cause was done. 20 mL of 1% buffered lidocaine was used for local anesthetization. A stab incision was made in the umbilicus and the Verres inserted. Drop test was positive and insufflation was begun. When 15 mm of pressure was noted on the monitor, the Veress was removed and #5 port inserted. The camera was inserted through the port and shows no damage to underlying structures. A 10 mm port was then placed in the epigastric position under direct visualization following creation of local field blocks as well as two 5 mm ports in the right upper quadrant. The gallbladder fundus was grasped and retracted towards the right shoulder. Infundibulum was grasped and retracted laterally. The GB is completely filled w/ stones and is difficult to manipulate. The hepat-duodenal ligament is entered. The cystic duct and artery are dissected out and the most inferior portion of the gallbladder plate is removed from the liver and the critical view of safety was obtained after clearing away all fatty material. Endo Clips were placed across the duct and artery and these structures are divided. The remainder of the gallbladder was excised from the liver bed. The gallbladder was placed in a bag and brought out. Examination of the gallbladder shows indeed the cystic duct and artery to have been divided. Surgicel is placed in the GB fossa. The remainder of the abdomen was copiously irrigated with a liter of saline. All saline is removed. There is no bleeding or bile leakage from the liver bed or the clips sites. An EndoClose needle was used to close the 10 mm port site with an 0 Vicryl. All ports and instruments are removed. SPonge and needle counts are correct. Pneumoperitoneum is evacuated and the port sites are monitored to make sure there is no bleeding at the time of desufflation. Port sites are irrigated and the skin is closed with 4-0 Monocryl in a running subcuticular fashion. Skin glue sterile dressings are applied. The patient tolerated the procedure well without complications, transferred to the recovery room in stable condition. ANITA POLANCO DO
[2021-05-14] MEDS: fentaNYL 100 MCG/2 ML VIAL IVP (09:46)
--- NOTE | 2021-05-14 10:36 | W.ANESPOSTOP ---
Postoperative Evaluation Date, Time and Location Date Performed: 05/14/21 Time Performed: 10:36 Patient Location: Day Surgery Unit Vital Signs Most Recent Imported Vital Signs: Most Recent Vital Signs Temp Pulse Resp BP Pulse Ox 36.2 C L 82 14 118/75 100 05/14/21 10:20 05/14/21 10:20 05/14/21 10:20 05/14/21 10:20 05/14/21 10:20 Pain Score Most Recent Pain Score: Most Recent Pain Score Pain Level 3 05/14/21 10:20 Assessment Mental Status: Awake (Alert & Oriented to Patient Baseline) Airway and Respiratory Function: Patent airway with normal (patient baseline) respiratory exam Cardiovascular Function: Hemodynamically Stable Hydration Status: Adequately Hydrated Nausea & Vomiting: No Nausea or Vomiting Pain: Pt. Denies Any Pain Peripheral Nerve Block: Patient did not receive a nerve block
--- NOTE | 2021-05-14 11:27 | PDOC.DSDIS_ITS ---
Discharge Plan Disposition Patient Disposition: HOME Condition: Good Discharge Details Reason For Visit: gallbladder removal Attending Provider: Anita Rosales Primary Care Provider: Temitope Jeronimo Home Meds and New Rx's Prescriptions: New ondansetron HCl [Zofran] 4 mg tablet 4 mg PO Q6H PRNQty: 4 RF: 0 tramadol [Ultram] 50 mg tablet 50 mg PO Q4H PRNQty: 14 RF: 0 Continued albuterol sulfate [ProAir HFA] 90 mcg/actuation HFA aerosol inhaler 2 puff IH Q6H PRNRF: 0 buspirone 15 mg tablet 15 mg PO BID RF: 0 loratadine [Claritin] 10 mg tablet 10 mg PO DAILY RF: 0 Mirena 20 mcg/24 hours (5 yrs) 52 mg intrauterine device 1 device IY ONCE RF: 0 tramadol 50 mg tablet 50 mg PO Q6H PRN (Reason: pain) Qty: 7 RF: 0 methylphenidate HCl 5 mg tablet 10 mg PO BID RF: 0 pyridoxine (vitamin B6) [Vitamin B-6] 50 mg tablet 25 mg PO BID RF: 0 ibuprofen 600 mg Tablet 600 mg PO TID PRNRF: 0 Discharge Instructions Additional Instructions: Care after Gallbladder Surgery -Pain control: For the first 72 hours after surgery, take you pain meds continuously and not just when you have pain. Alternate Tylenol 1000mg by mouth every 8 hours, and Ibuprofen 600mg every 6 hours. Make sure you take ibuprofen with food and not on an empty stomach. Use the tramadol for breakthrough pain- pain that is greater than a 7. - Use ICE! Ice really helps to keep the swelling down, and swelling causes pain. Twenty minutes on, and then off, continuously for the first 72hours. After the first 72hrs, you can just use the Tylenol, ibuprofen and ice, when you have pain. If you are taking narcotic pain medication, follow the instructions on the label and do not drive. Pain medications can make you very constipated. Make sure you are moving your bowels daily. If not, take Miralax, milk of magnesia or magnesium citrate. - Anesthesia makes you very constipated. Take a dose of milk of magnesia the morning after surgery. ? Use an ice bag for the first 72 hours. This helps to decrease swelling, which causes pain. It is normal to be more sore/painful and swollen towards the end of the day and first thing in the morning. ? Gallbladder surgery can make you very nauseated; use Zofran for nausea, for the first 24 hours. The nausea generally stops after 24 hours. ? Use milk of magnesia or prune juice to prevent constipation (this is a particular side effect of pain medication and anesthesia). Do not allow yourself to become constipated. ? Avoid fatty or greasy foods; introduce these slowly, with care, after about 1 month. High-fat foods include: ? Foods that are fried, like Romanian fries and potato chips ? High-fat meats, such as kruger, bologna, sausage, ground beef, and ribs, pork products ? High-fat dairy products, such as cheese, ice cream, cream, whole milk, and sour cream ? Pizza ? Foods made with lard or butter ? Creamy soups or sauces ? Meat gravies ? Chocolate ? Oils, such as palm and coconut oil ? Skin of chicken or turkey Nuts and nut butters Avacadoes ? Start out eating very small, bland amounts of food. Do not take pain pills on an empty stomach. - You will notice purple discoloration around the incisions. This is the ?skin glue?. This will wear off on its own. It is OK to shower after 24hrs. You do not need to cover the incisions. - -You should walk frequently, gradually, increasing the distance. You may climb stairs, just go slowly. ? Do not go swimming or sit in a hot tub for two weeks. ? There are no stitches to remove. ? Do not drive your car x72hrs and then only if you have no pain and can move freely. Do not drive if you are taking pain narcotic pain medications. ? You may resume sexual activity whenever pain and soreness subside, usually in 2 weeks. ? Do no lift anything over 5 lbs. for two weeks. ? You may return to work in one week, or when you feel able, provided you do not have to do any heavy lifting or prolonged standing. ? You should return to Dr. Rosales?s office for a post-op appointment about one week after surgery. Please call the Surgical Clinic at: [phone] to schedule an appointment. My Medications for pain and nausea are: Celebrex and ultram, and zofran When to Call the Office: ? If the incision becomes red or swollen, or there is more than a little drainage from it. ? If you develop a temperature higher than 100.5 F. ? If your eyes turn yellow ? Vomiting and can?t keep fluids down Stand Alone Forms: Anesthesia Discharge Inst., Anes.Sugammadex Interaction, Neeraj Romero (DSU) Activity:: see above Remove Dressings/Wound Care:: 24 hours Shower/Bathe:: 24 hours Diet:: see above Discharge Orders Discharge Orders: Discharge Order (Routine); Ordered 05/14/21 Ordered By: Anita Rosales DS: Diagnosis Discharge Diagnosis (1) Gallstone pancreatitis: Status: Acute (2) Cholelithiasis and acute cholecystitis without obstruction: Status: Acute
[2021-05-14] MEDS: traMADol 50 MG TAB PO (11:42)
== END 2021-05-14 13:00 | disposition home or self-care (01) ==
PROVIDERS: PCP Nurse Practitioner Family; Visit Provider Surgery
PROC: 0FT44ZZ Resection of Gallbladder, Percutaneous Endoscopic Approach (ICD-10-PCS; CPT 47562; principal; 2021-05-14 07:30)
DX: K80.10 Calculus of gallbladder with chronic cholecystitis without obstruction (principal); K21.9 Gastro-esophageal reflux disease without esophagitis; F17.210 Nicotine dependence, cigarettes, uncomplicated; J45.909 Unspecified asthma, uncomplicated
CPT/HCPCS: 47562; 88304; J0690; J1100; J1885; J2001; J2405; J3010

== ENCOUNTER 2022-02-05 09:28 | Outpatient (REF) | payer MEDICAID, SELFPAY ==
[2022-02-06 15:31] LABS: Chlamydia Result Negative (Negative); GC Result Negative (Negative)
== END 2022-02-05 09:29 | disposition home or self-care (01) ==
LOC: LBN 09:28
PROVIDERS: PCP Nurse Practitioner Family; Visit Provider Nurse Practitioner Women's Health
DX: Z11.3 Encounter for screening for infections with a predominantly sexual mode of transmission (principal)
CPT/HCPCS: 87491; 87591

== ENCOUNTER 2022-07-28 16:35 | Outpatient (REF) | payer MEDICAID, SELFPAY ==
[2022-07-30 15:10] LABS: Chlamydia Result Negative (Negative); GC Result Negative (Negative)
== END 2022-07-28 16:36 | disposition home or self-care (01) ==
LOC: LBN 16:35
PROVIDERS: PCP Nurse Practitioner Family; Visit Provider Advanced Practice Midwife
DX: Z01.419 Encounter for gynecological examination (general) (routine) without abnormal findings (principal); Z72.51 High risk heterosexual behavior
CPT/HCPCS: 87491; 87591; 87480; 87510; 87660

== ENCOUNTER 2022-11-11 14:15 | Outpatient (REF) | payer MEDICAID, SELFPAY | END 2022-11-11 14:16 | disposition home or self-care (01) | LOC: LBN 14:15 | PROVIDERS: PCP Nurse Practitioner Family; Visit Provider Advanced Practice Midwife | DX: R30.0 Dysuria (principal) | CPT/HCPCS: 87086 ==

== ENCOUNTER 2023-04-24 18:30 | Outpatient (REF) | payer MEDICAID, SELFPAY ==
--- OUTSIDE RECORDS SUMMARY | 2023-04-24 18:32 | XMS_ITS | Continuity of Care Document ---
Author Name Unknown Organization [facility] Address [address] [place] [address] Encounter [facility] FIN NBR [id number] Date(s): 06/21/22 - 06/21/22 [facility] [address], [place] [address] Encounter Diagnosis Exposure to head lice(Discharge Diagnosis) - 06/21/22 Discharge Disposition: Home or Self Care Attending Physician: Jaleesa Bernal PA-C Allergies, Adverse Reactions, Alerts No Known Medication Allergies Functional Status 06/21/22 Other exposure to Infectious Disease Non e Medications busPIRone 7.5 mg oral tablet 7.5 mg = 1 tab, Oral, TID, # 270 tab, 0 Refill(s) Start Date: 06/21/22 Status: Ordered Ritalin 0 Refill(s) Start Date: 06/21/22 Status: Ordered Vital Signs Most recent to oldest [Reference Range]: 1 Peripheral Pulse Rate [60-100 bpm] 98 bp m (06/21/22 2:57 PM) Blood Pressure [90-140/60-90 mmHg] 126/7 8mmHg (06/21/22 2:57 PM)
== END 2023-04-24 18:31 | disposition home or self-care (01) ==
LOC: LBN 18:30
PROVIDERS: PCP Nurse Practitioner Family; Visit Provider Physician Assistant Medical
DX: J03.90 Acute tonsillitis, unspecified (principal)
CPT/HCPCS: 87070

== ENCOUNTER 2023-12-04 21:17 | Outpatient (REF) | payer MEDICAID, SELFPAY ==
[2023-12-07 10:10] LABS: Syphilis Serology (RPR) Negative (Negative)
[2023-12-07 10:18] LABS: Hepatitis C Ab w Rflx HCV PCR Negative (Negative)
[2023-12-07 10:31] LABS: HIV-1/2 Ag & Ab Screen Negative (Negative)
[2023-12-07 14:02] LABS: Chlamydia Result Negative (Negative)
[2023-12-07 15:45] LABS: GC Result Positive (Negative)
== END 2023-12-04 21:18 | disposition home or self-care (01) ==
LOC: LBN 21:17
PROVIDERS: PCP Nurse Practitioner Family; Visit Provider Physician Assistant Medical
DX: Z11.3 Encounter for screening for infections with a predominantly sexual mode of transmission (principal); Z11.4 Encounter for screening for human immunodeficiency virus [HIV]; Z11.59 Encounter for screening for other viral diseases; A63.8 Other specified predominantly sexually transmitted diseases
CPT/HCPCS: 86803; 87389; 87491; 87591; 86592

== ENCOUNTER 2024-01-28 08:41 | Emergency (ER) | payer MEDICAID, SELFPAY ==
[2024-01-28] VITALS (33 sets, daily range): BP systolic 89–135; BP diastolic 52–78; PULSE 92–147; RESP 10–21; TEMP 37.7; O2SAT 97–100
[2024-01-28 09:15] LABS: Lactate 0.9 mmol/L (0.6-1.4)
[2024-01-28 09:17] LABS: Abs Immature Grans 0.03 10^3/uL (0.0-0.06); Absolute Basophil Count 0.02 10^3/uL (0.0-0.2); Absolute Lymphocyte Count 0.34 10^3/uL (1.2-3.4); Absolute Monocyte Count 1.41 10^3/uL (0.1-0.8); Absolute Neutrophil Count 9.46 10^3/uL (1.2-6.7); Basophils % 0.2 %; HCT 36.2 % (36.0-46.0); HGB 12.8 g/dL (11.2-15.7); Immature Grans % 0.3 %; MCH 29.4 pg (27.0-33.0); MCHC 35.4 % (32.0-36.0); MCV 83 fL (80-95); MPV 10.5 fL (8.0-11.0); Monocytes % 12.5 %; Platelet Count 161 10^3/uL (130-400); RBC 4.35 10^6/uL (3.93-5.22); RDW 13.1 % (11.7-14.6); RDW-SD 39.8 fL; WBC 11.26 10^3/uL (4.4-10.8)
--- NOTE | 2024-01-28 09:29 | ED.GENADUL_ITS ---
Discharge Plan Disposition Patient Disposition: Home Condition: Stable Discharge Details Clinical Impression: Acute febrile illness Primary Care Provider: Temitope Jeronimo ED Provider: Luis Lay Home Meds and New Rx's Prescriptions: New doxycycline hyclate 100 mg tablet 100 mg PO BID Qty: 41 0RF Continued albuterol sulfate [ProAir HFA] 90 mcg/actuation HFA aerosol inhaler 2 puff IH Q6H PRN buspirone 15 mg tablet 15 mg PO BID loratadine [Claritin] 10 mg tablet 10 mg PO DAILY methylphenidate HCl 5 mg tablet 10 mg PO BID Patient Comments: TAKE 2 TABLETS BY MOUTH IN THE MORNING AND 2 TABLETS IN THE AFTERNOON pyridoxine (vitamin B6) [Vitamin B-6] 50 mg tablet 25 mg PO BID Patient Comments: TAKE 1 2 (ONE HALF) TABLET BY MOUTH TWICE DAILY ibuprofen 600 mg Tablet 600 mg PO TID PRN Discharge Instructions Instructions: Fever in Adults (ED) Additional Instructions: Please drink plenty of fluids and allow for plenty of rest. Lab testing is pending at time of discharge today. Please be sure to follow-up with your primary care physician to review results. You have been started on doxycycline empirically given concern for potential tickborne disease. Please take course as prescribed. Please contact your primary care physician to arrange follow-up. Call today. Return to the ER immediately for any worsening or new concerning symptoms. Referrals: Temitope Jeronimo [Primary Care Provider] - Discharge Data Discharge Date/Time-TO BE ENTERED AT DEPARTURE: 01/28/24 12:44 HPI General Mode of arrival: ambulatory . Date/Time Provider Initiated Documentation: 01/28/24 08:46 . Limitations to Documentation: no limitations . Information obtained by: patient . HPI Narrative: 28-year-old female presents with chief complaint of febrile illness. Patient notes generally not feeling well for the past 2 to 3 days. She states she developed a fever Thursday morning that has persisted. Fever as high as 103. She has associated body aches and specifically notes pain in her low back. Denies current rash but does states she had a welt that she noticed on her back that since resolved. No known tick bites but she does work outside as a online retailer. She does note dry cough. Patient feels achy all over. She has sinus congestion. No urinary symptoms or abdominal pain. No history of IV drug use. Related Data Home Medications Medication Instructions Recorded Confirmed albuterol sulfate 90 mcg/actuation 2 puff inhalation Q6H PRN 06/30/18 01/28/24 aerosol inhaler (ProAir HFA) buspirone 15 mg tablet 15 mg PO BID 06/30/18 01/28/24 loratadine 10 mg tablet (Claritin) 10 mg PO DAILY 06/30/18 01/28/24 methylphenidate HCl 5 mg tablet 10 mg PO BID 04/13/21 01/28/24 pyridoxine (vitamin B6) 50 mg 25 mg PO BID 04/13/21 01/28/24 tablet (Vitamin B-6) ibuprofen 600 mg tablet 600 mg PO TID PRN 05/14/21 01/28/24 doxycycline hyclate 100 mg tablet 100 mg PO BID #41 tabs 01/28/24 Previous Rx's Medication Instructions Recorded doxycycline hyclate 100 mg tablet 100 mg PO BID #41 tabs 01/28/24 Allergies Allergy/AdvReac Type Severity Reaction Status Date / Time seasonal allergies Allergy Intermediate Other (See Uncoded 01/28/24 08:48 Comment) vitamin D AdvReac Mild Other (See Uncoded 01/28/24 08:48 Comment) General Stated Complaint: Fever BRII: 3 Review of Systems Constitutional Constitutional: Reports body ache(s), Reports fever(s), Reports headache(s) (Described as sinus congestion frontal and facial) and Reports lethargy ENT Ears, Nose, Mouth, and Throat: Reports headache(s) (Described as sinus congestion frontal and facial) Respiratory Respiratory: Reports as per HPI Gastrointestinal Gastrointestinal: Reports as per HPI Genitourinary Genitourinary: Denies dysuria Neurologic Neurologic: Reports headache(s) (Described as sinus congestion frontal and facial) Exam Const General: cooperative HENNV Mouth: moist mucous membranes Eyes Conjunctivae: normal conjunctivae Sclera: normal sclerae Resp Auscultation: clear to auscultation bilaterally, no rales, no rhonchi and no wheezes Cardio Rate: tachycardic Rhythm: regular rhythm Heart Sounds: no gallops, no murmurs and no rubs GI Palpation: soft, not firm, no guarding, no masses, not rigid and nontender Skin General skin exam: no rashes or lesions noted Neuro General: patient alert, patient awake, tone normal and no meningeal signs Extrem General: no edema Psych Appearance: grossly normal Mental Status: mental status grossly normal Course Vital Signs Vital signs: Vital Signs Temperature 37.7 C H 01/28/24 08:44 Pulse 147 H 01/28/24 08:44 Respiratory Rate 18 01/28/24 08:44 Blood Pressure 89/65 L 01/28/24 08:44 Pulse Oximetry 98 01/28/24 08:44 Temperature 37.7 C H 01/28/24 08:57 Pulse 147 H 01/28/24 08:57 Respiratory Rate 18 01/28/24 08:57 Respiratory Effort Normal, Non-Labored 01/28/24 08:53 Blood Pressure 89/65 L 01/28/24 08:57 Blood Pressure Position Sitting 01/28/24 08:57 Pulse Oximetry 98 01/28/24 08:57 Oxygen Delivery Method Room Air 01/28/24 08:57 Oxygen Flow Rate 0 01/28/24 08:57 Pain Level 9 01/28/24 08:57 Lab/Test Results Lab/Test Results: 01/28/24 09:20 Blood Blood Culture - Pending 01/28/24 09:07 Blood Blood Culture - Pending Laboratory Tests Range/Units 01/28/24 09:08 WBC (4.4-10.8) 10^3/uL 11.26 H RBC (3.93-5.22) 10^6/uL 4.35 Hgb (11.2-15.7) g/dL 12.8 Hct (36.0-46.0) % 36.2 MCV (80-95) fL 83 MCH (27.0-33.0) pg 29.4 MCHC (32.0-36.0) % 35.4 RDW (11.7-14.6) % 13.1 Plt Count (130-400) 10^3/uL 161 MPV (8.0-11.0) fL 10.5 Immature Gran % % 0.3 Neutrophils % % 84.0 Lymphocytes % % 3.0 Monocytes % % 12.5 Eosinophils % % 0.0 Basophils % % 0.2 Nucleated RBC % (0.0-0.3) % 0.0 Absolute Neutrophils (1.2-6.7) 10^3/uL 9.46 H Absolute Lymphocytes (1.2-3.4) 10^3/uL 0.34 L Absolute Monocytes (0.1-0.8) 10^3/uL 1.41 H Absolute Eosinophils (0.0-0.7) 10^3/uL 0.00 Absolute Basophils (0.0-0.2) 10^3/uL 0.02 VBG Lactate (0.6-1.4) mmol/L 0.9 POC- Test(urine) Negative Medical Decision Making 933??28-year-old female smoker here with fever and bodyaches with nonproductive cough over the past 2 to 3 days. Patient is febrile, tachycardic and hypotensive on arrival. Unclear infectious source at this point. Differential is broad and includes pneumonia, COVID, urinary tract infection, tickborne disease. No meningismus on exam. I will send diagnostic labs including blood cultures and lactate. Chest x-ray pending. I will give IV fluid bolus, Toradol IV, plan to reassess. 1143 --Labs reviewed: Mild leukocytosis noted. Initial urinalysis contaminated with squamous cells. Repeat urinalysis also contaminated with squamous cells. She does have 10-20 RBCs and 5-10 WBCs with many squamous cells. Patient recently had her period. Suspect contamination as she has no urinary symptoms. Chest x-ray reviewed and interpreted by radiology: No acute pulmonary findings Consider tickborne disease. I will initiate treatment with doxycylcine while tick panel is pending. 1213 --patient has additional history that she had gonorrhea diagnosed in November that was treated with ceftriaxone. Other STD testing including HIV was negative. It was recommended that time that she have repeat testing to confirm treatment. Patient was asymptomatic at that time. Patient continues to have no symptoms including vaginal pain or discharge. I will repeat testing on urine specimen today. --Patient reassessed and remains hemodynamically stable. All results were discussed with the patient. Plan for discharge with close outpatient follow-up. Disposition decision was made weighing the risks and benefits of hospitalization versus outpatient treatment, the risk for further decompensation, and the patient's wishes. The patient was stable and requested discharge. Prior to discharge, my usual and customary return precautions were reviewed with the patient - this included follow-up instructions and reason to return to the emergency department if condition worsens, does not improve as expected, or other new concerns arise. Quality:SDOH Health Related Social Needs: No Data to Display PFSH All Active Problems (Updated 01/28/24 @ 12:15 by Luis Lay MD) Acute febrile illness (Acute) Dysuria (Acute) Anxiety with depression (Acute 06/03/17) buspar 15 mg in a.m. and 7.5 mg Medical History (Updated 01/28/24 @ 12:15 by Luis Lay MD) Chronic iron deficiency anemia Chronic GERD omeprazole daily Tobacco use 1 ppd, quit 06/2019 Asthma inhaler in the past Headache migraines rarely Surgical History Status post cholecystectomy (~05/14/21) History of wisdom tooth extraction Family History (Updated 07/28/22 @ 13:09 by Aby Caro CNM) Father Alcohol abuse Sister Asthma Mother Bipolar 1 disorder Grandmother Bipolar 1 disorder Other Adopted Social History Smoking/Tobacco Use Status: Current every day Tobacco Type: cigarettes Second Hand Exposure: Yes Smoking risk assessment performed?: Yes Alcohol Intake: current Alcohol Intake frequency: a few times a month Alcohol type: beer Drug use: Never Substance use type: does not use Details: alcohol: over one month ago Adopted: Yes (age 6mo) Foster care: No Household members: spouse, children and other Details: 06/2018 Zyiv5ikjosef Bentley 1yo Number of Children: 2 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 [facility] Sexually active: Yes Current gender identity: female Seatbelt use: always Do you feel safe at home: Yes Do you feel safe in your relationship?: Yes Female Reproductive History Menstrual control method: implanted History History 3 Para 3 Hx # Term Pregnancies 3 Multiple births 0 Hx # Pregnancies 0 Ectopic pregnancies 0 AB induced 0 Hx Number of Living Children 3 AB spontaneous 0 Past Pregnancies Del. Date GA/Weeks # Preg Succ Route Wgt Sex Labor Lgth Anesth esia Location [facility] Compl 04/14/13 40 No vaginal 3316.894 g Female 6 [facility] saul 05/20/17 40 No vaginal 3770.487 g Male 12 [facility] Michelle 02/24/20 41 No vaginal 4025.632 g Male 9 hrs 14 min ARONEY Anthony Delivery Date: 04/14/13 Last Updated by: RONEY Simms. Pitocin augmentation. Delivery Date: 05/20/17 Last Updated by: RONEY Simms, IOL for prodromal labor Delivery Date: 02/24/20 Last Updated by: Hailee Cortes LPN short umbilical cord noted
[2024-01-28 09:32] LABS: ALT 25 U/L (14-59); AST 16 U/L (15-37); Albumin 3.3 g/dL (3.4-5.0); Alkaline Phosphatase 101 U/L (46-116); Anion Gap 13.6 mmol/L (3-11); BUN 10 mg/dL (7-18); Bilirubin, Total 0.8 mg/dL (0.2-1.0); CO2 22.4 mmol/L (21.0-32.0); CREATININE 0.8 mg/dL (0.55-1.02); Calcium 8.6 mg/dL (8.5-10.1); Chloride 98 mmol/L (98-107); Estimated GFR 101.59 (mL/min/1.73m2); Glucose 101 mg/dL (74-106); Magnesium 1.7 mg/dL (1.8-2.4); Potassium 3.4 mmol/L (3.5-5.1); Sodium 134 mmol/L (136-145); Total Protein 7.7 g/dL (6.4-8.2)
[2024-01-28] MEDS: Lactated Ringers 1,000 ML 1000 ML IV ×2 (09:32→11:23)
[2024-01-28 09:36] LABS: Bilirubin Small (Negative); Blood Moderate (Negative); Clarity Sl Cloudy (Clear); Glucose Negative (Negative); Ketones >=160 mg/dL (Negative); Leukocyte Esterase Moderate (Negative); Nitrite Positive (Negative); Urobilinogen >=8.0 mg/dL (Up to 0.2)
--- NOTE | 2024-01-28 09:45 | DI.RAD_ITS ---
Exam(s) XR CHEST 2V PA LATERAL EXAM: XR CHEST 2V PA LATERAL CLINICAL HISTORY: fever. TECHNIQUE: 2D digital imaging was performed. COMPARISON: No exams were available for comparison FINDINGS: 2 views: Heart size is normal. The mediastinum is not widened. Lungs are clear. No infiltrates nor pleural effusions. IMPRESSION: No acute pulmonary findings. DATA REPOSITORY: RADIATION DOSE DELIVERED:
[2024-01-28 09:49] LABS: Epithelial Cells Moderate HPF (Negative)
[2024-01-28 09:50] LABS: Bacteria Few HPF (Negative); C & S Indicated? No/Sq. Contamination; Casts Negative LPF (Negative); Crystals Negative HPF (Negative); Mucus Moderate (Negative); Other Cells Negative (Negative)
[2024-01-28] MEDS: Ketorolac 15 MG/ML VIAL IVP (10:00)
[2024-01-28 10:10] LABS: COVID-19 PCR Negative (Negative); Influenza A PCR Negative (Negative); Influenza B PCR Negative (Negative); RSV PCR Negative (Negative)
[2024-01-28 10:11] LABS: Source Nasopharynx
[2024-01-28 11:04] LABS: Bilirubin Small (Negative); Blood Moderate (Negative); Clarity Sl Cloudy (Clear); Glucose Negative (Negative); Ketones >=160 mg/dL (Negative); Leukocyte Esterase Small (Negative); Nitrite Negative (Negative); Specific Gravity 1.015 (1.005-1.025)
[2024-01-28 11:08] LABS: Bacteria Few HPF (Negative); C & S Indicated? No/Sq. Contamination; Casts Negative LPF (Negative); Crystals Negative HPF (Negative); Epithelial Cells Many HPF (Negative); Mucus Negative (Negative)
[2024-01-28] MEDS: Acetaminophen 500 MG TAB 1000 MG PO (11:23)
[2024-01-28] MEDS: Doxycycline Hyclate 100 MG CAP PO (11:55)
--- NOTE | 2024-01-28 12:15 | RT.EKG_ITS ---
APPROVED REPORT Exam: Resting ECG Reason for Exam: concern for lyme dz Patient Location: E HR:94 bpm ECG Measurements Heart Rate 94 AXIS AL 171 P 54 QRSd 76 QRS 37 QT 331 T 34 QTc 415 Conclusion Sinus rhythm...normal P axis, V-rate 60- 99
[2024-01-29 11:31] LABS: Lyme Ab w Rflx to Lyme Confirm Negative (Negative)
--- NOTE | 2024-01-30 10:50 | NUR.NOTE ---
Accessed Pt chart to obtain the account number to label the urine sample that Pt provided. Pt requests a work note stating that she could go back to work Thursday. Dr Null wrote the note
[2024-02-01 13:28] LABS: Chlamydia Result Negative (Negative); GC Result Negative (Negative)
[2024-02-01 17:35] LABS: Anaplasma phagocytophilum Negative (Negative); B. miyamotoi PCR Negative (Negative); Babesia divergens/MO-1 Negative (Negative); Babesia duncani Negative (Negative); Babesia microti Negative (Negative); Ehrlichia chaffeensis Negative (Negative); Ehrlichia ewingii/canis Negative (Negative); Ehrlichia muris eauclairensis Negative (Negative)
--- NOTE | 2024-02-02 09:00 | NUR.NOTE ---
Nursing Note: RN called and spoke w/ patient on 02/02/24 at 0900 hours and relayed results of Gonorrhea/Chlamydia testing. No additional treatment needed due to negative test results.
== END 2024-02-04 11:21 | disposition home or self-care (01) ==
PROVIDERS: Emergency Medicine; Emergency Provider Student in an Organized Health Care Education/Training Program; PCP Nurse Practitioner Family
DX: R50.9 Fever, unspecified (principal); R05.9 Cough, unspecified; R09.89 Other specified symptoms and signs involving the circulatory and respiratory systems; F17.210 Nicotine dependence, cigarettes, uncomplicated
CPT/HCPCS: 36415; 80053; 81025; 87040; 87491; 87591; 87637; 87798; 93005; 96361; 96374; 99285; 71046; 81003; 81015; 83605; 83735; 85025; 86618; 93010; 99284; J1885

== ENCOUNTER 2024-02-02 18:39 | Outpatient (REF) | payer MEDICAID, SELFPAY ==
[2024-02-03 19:33] LABS: HIV-1/2 Ag & Ab Screen Negative (Negative); Hepatitis C Ab w Rflx HCV PCR Negative (Negative)
[2024-02-04 12:37] LABS: Lyme Ab w Rflx to Lyme Confirm Negative (Negative)
[2024-02-04 13:16] LABS: Syphilis Serology (RPR) Negative (Negative)
[2024-02-05 22:28] LABS: Anaplasma phagocytophilum Negative (Negative); B. miyamotoi PCR Negative (Negative); Babesia divergens/MO-1 Negative (Negative); Babesia duncani Negative (Negative); Babesia microti Negative (Negative); Ehrlichia chaffeensis Negative (Negative); Ehrlichia ewingii/canis Negative (Negative); Ehrlichia muris eauclairensis Negative (Negative)
== END 2024-02-02 18:40 | disposition home or self-care (01) ==
LOC: NCHCN 18:39
PROVIDERS: PCP Nurse Practitioner Family; Visit Provider Nurse Practitioner Family
DX: R50.9 Fever, unspecified (principal); Z11.59 Encounter for screening for other viral diseases
CPT/HCPCS: 86803; 87389; 87798; 86592; 86618

== ENCOUNTER 2024-08-23 17:37 | Emergency (ER) | payer MEDICAID, SELFPAY ==
[2024-08-23 17:39] VITALS: BP 118/72; PULSE 110; RESP 15; TEMP 36.6; O2SAT 99
[2024-08-23 18:00] VITALS: BP 110/80; PULSE 80; RESP 18; O2SAT 99
[2024-08-23] MEDS: Ibuprofen 600 MG TAB PO (18:10)
--- NOTE | 2024-08-23 18:45 | DI.RAD_ITS ---
Exam(s) XR KNEE LT 3V AP,LAT,ALBA EXAM: XR KNEE LT 3V AP,LAT,ALBA CLINICAL HISTORY: left knee pain. TECHNIQUE: 2D digital imaging was performed. Three views. COMPARISON: No exams were available for comparison FINDINGS: BONES: No acute fracture is present. No bony destructive lesion is seen. JOINTS: The knee is normally aligned. No joint effusion is seen. The joint spaces are maintained. SOFT TISSUE: Normal. IMPRESSION: Normal radiographs of the left knee. DATA REPOSITORY: RADIATION DOSE DELIVERED:
--- NOTE | 2024-08-25 09:10 | ED.GENADUL_ITS ---
Discharge Plan Disposition Patient Disposition: Home Condition: Stable Discharge Details Clinical Impression: Acute knee pain Primary Care Provider: Temitope Johnson ED Provider: Juliana Andrade Home Meds and New Rx's Prescriptions: Continued albuterol sulfate [ProAir HFA] 90 mcg/actuation HFA aerosol inhaler 2 puff IH Q6H PRN buspirone 15 mg tablet 15 mg PO BID loratadine [Claritin] 10 mg tablet 10 mg PO DAILY methylphenidate HCl 5 mg tablet 10 mg PO BID Patient Comments: TAKE 2 TABLETS BY MOUTH IN THE MORNING AND 2 TABLETS IN THE AFTERNOON pyridoxine (vitamin B6) [Vitamin B-6] 50 mg tablet 25 mg PO BID Patient Comments: TAKE 1 2 (ONE HALF) TABLET BY MOUTH TWICE DAILY ibuprofen 600 mg Tablet 600 mg PO TID PRN doxycycline hyclate 100 mg tablet 100 mg PO BID Qty: 41 0RF Discharge Instructions Additional Instructions: use motrin gel over the counter for pain wear your knee splint for the next 7 days follow-up with pcp for recheck in 7-14 days follow-up with physical therapy motrin and tylenol as needed for pain return with spreading redness, fever, worsening pain Stand Alone Forms: Physical Therapy Referral, Work Release Referrals: Temitope Johnson [Primary Care Provider] - 1 day Discharge Data Discharge Date/Time-TO BE ENTERED AT DEPARTURE: 08/23/24 19:30 HPI General Date/Time Provider Initiated Documentation: 08/23/24 18:18 . HPI Narrative: 29-year-old female presenting with knee pain for the past month. She tripped walking down the stairs and landed directly on the anterior aspect of her knee. States she has had persistent pain for that time. Worse with extension and weightbearing. Denies any chance of . Denies any additional injuries. Denies any weakness. Related Data Home Medications ?Medication ?Instructions ?Recorded ?Confirmed albuterol sulfate 90 mcg/actuation 2 puff inhalation Q6H PRN 06/30/18 08/23/24 aerosol inhaler (ProAir HFA) buspirone 15 mg tablet 15 mg PO BID 06/30/18 08/23/24 loratadine 10 mg tablet (Claritin) 10 mg PO DAILY 06/30/18 08/23/24 methylphenidate HCl 5 mg tablet 10 mg PO BID 04/13/21 08/23/24 pyridoxine (vitamin B6) 50 mg 25 mg PO BID 04/13/21 08/23/24 tablet (Vitamin B-6) ibuprofen 600 mg tablet 600 mg PO TID PRN 05/14/21 08/23/24 doxycycline hyclate 100 mg tablet 100 mg PO BID #41 tabs 01/28/24 08/23/24 Previous Rx's ?Medication ?Instructions ?Recorded doxycycline hyclate 100 mg tablet 100 mg PO BID #41 tabs 01/28/24 Allergies Allergy/AdvReac Type Severity Reaction Status Date / Time seasonal allergies Allergy Intermediate Other (See Uncoded 08/23/24 17:43 Comment) vitamin D AdvReac Mild Other (See Uncoded 08/23/24 17:43 Comment) General Stated Complaint: Orthopedic BRII: 4 Exam Narrative Exam Narrative: Left knee with tenderness overlying the patellar tendon, joint laxity, no palpable effusion, no tenderness left hip left ankle, neurovascularly intact, no visible signs of trauma Course Vital Signs Vital signs: Vital Signs Temperature 36.6 C 08/23/24 17:39 Pulse 110 H 08/23/24 17:39 Respiratory Rate 15 08/23/24 17:39 Blood Pressure 118/72 08/23/24 17:39 Pulse Oximetry 99 08/23/24 17:39 Temperature 36.6 C 08/23/24 17:39 Pulse 80 08/23/24 18:00 Respiratory Rate 18 08/23/24 18:00 Respiratory Effort Normal 08/23/24 17:42 Blood Pressure 110/80 08/23/24 18:00 Blood Pressure Mean 90 08/23/24 18:00 Blood Pressure Position Sitting 08/23/24 17:39 Pulse Oximetry 99 08/23/24 18:00 Oxygen Delivery Method Room Air 08/23/24 17:39 Oxygen Flow Rate 0 08/23/24 17:39 Pain Level 5 08/23/24 18:00 Lab/Test Results Lab/Test Results: POC- Test(urine) Negative Medical Decision Making Alert and oriented 29-year-old female no acute distress. X-ray per radiology interpretation my review does not show evidence of acute abnormality. Hinged knee brace applied and patient encouraged to follow-up with primary care physician and physical therapy. Return precautions reviewed and patient expres sed understanding Quality:SDOH Health Related Social Needs: No Data to Display PFSH All Active Problems (Updated 08/23/24 @ 19:18 by AMEE Pham) Acute knee pain (Acute) Dysuria (Acute) Anxiety with depression (Acute 06/03/17) buspar 15 mg in a.m. and 7.5 mg Medical History (Updated 08/23/24 @ 19:18 by AMEE Pham) Chronic iron deficiency anemia Chronic GERD omeprazole daily Tobacco use 1 ppd, quit 06/2019 Asthma inhaler in the past Headache migraines rarely Surgical History Status post cholecystectomy (~05/14/21) History of wisdom tooth extraction Family History (Updated 07/28/22 @ 13:09 by Aby Caro CNM) Father Alcohol abuse Sister Asthma Mother Bipolar 1 disorder Grandmother Bipolar 1 disorder Other Adopted Social History Smoking/Tobacco Use Status: Current every day Tobacco Type: cigarettes Second Hand Exposure: Yes Smoking risk assessment performed?: Yes Alcohol Intake: current Alcohol Intake frequency: a few times a month Alcohol type: beer Drug use: Never Substance use type: does not use Details: alcohol: over one month ago Adopted: Yes (age 6mo) Foster care: No Household members: spouse, children and other Details: 06/2018 Bonilla Bentley 1yo Number of Children: 2 current occupation: [employer] [facility] [employer] [facility] Sexually active: Yes Current gender identity: female Seatbelt use: always Do you feel safe at home: Yes Do you feel safe in your relationship?: Yes Female Reproductive History Menstrual control method: implanted History History 3 Para 3 Hx # Term Pregnancies 3 Multiple births 0 Hx # Pregnancies 0 Ectopic pregnancies 0 AB induced 0 Hx Number of Living Children 3 AB spontaneous 0 Past Pregnancies Del. Date GA/Weeks # Preg Succ Route Wgt Sex Labor Lgth Anesth esia Location [facility] Compl 04/14/13 40 No vaginal 3316.894 g Female 6 [facility] 05/20/17 40 No vaginal 3770.487 g Male 12 [facility] Michelle 02/24/20 41 No vaginal 4025.632 g Male 9 hrs 14 min A.LeLong, CNM Delivery Date: 04/14/13 Last Updated by: RONEY Simms. Pitocin augmentation. Delivery Date: 05/20/17 Last Updated by: RONEY Simms, IOL for prodromal labor Delivery Date: 02/24/20 Last Updated by: Hailee Cortes LPN short umbilical cord noted PAWSS Have you Been Recently Intoxicated or Drunk Within the Last 30 days?: Yes Have you Ever Experienced Previous Episodes of Alcohol Withdrawal?: No Have you ever Experienced Withdrawal Seizures?: No Have you ever Experienced Delirium Tremens(DT)s?: No Have you ever undergone Alcohol Rehabilitation Treatment (i.e, inpt ot outpatient treatment programs)?: No Have you ever Experienced Blackouts?: No Have you ever Combined Alcohol with other Downers within the last 90 days?: No Have you ever Combined Alcohol with any other Substance of Abuse during the last 90 days?: No Positive Blood Alcohol level on Presentation? [PCS.BAL]: No Evidence of Increased Autonomic Activity (i.e. HR>120, tremor, sweating, agitation, nausea)?: No Result: 1
== END 2024-08-23 19:30 | disposition home or self-care (01) ==
PROVIDERS: Emergency Provider Physician Assistant; PCP Nurse Practitioner Family
DX: M25.562 Pain in left knee (principal); F17.210 Nicotine dependence, cigarettes, uncomplicated
CPT/HCPCS: 73562; 81025; 99284

== ENCOUNTER 2024-10-04 18:26 | Outpatient (REF) | payer MEDICAID, SELFPAY | END 2024-10-04 18:27 | disposition home or self-care (01) | LOC: LBN 18:26 | PROVIDERS: PCP Nurse Practitioner Family; Visit Provider Nurse Practitioner Family | DX: J02.9 Acute pharyngitis, unspecified (principal) | CPT/HCPCS: 87070 ==

== ENCOUNTER 2025-02-17 13:51 | Emergency (ER) | payer MEDICAID, SELFPAY ==
[2025-02-17] VITALS (15 sets, daily range): BP systolic 112–128; BP diastolic 64–79; PULSE 105–136; RESP 20; TEMP 37.3; O2SAT 97
--- NOTE | 2025-02-17 14:00 | RT.EKG_ITS ---
APPROVED REPORT Exam: Resting ECG Reason for Exam: tachycardia Patient Location: E HR:133 bpm ECG Measurements Heart Rate 133 AXIS WY 187 P 91 QRSd 70 QRS 66 QT 271 T -15 QTc 403 Conclusion Sinus tachycardia...rate> 99 Probable left atrial enlargement...P >50mS, <-0.10mV V1
--- NOTE | 2025-02-17 14:12 | ED.GENADUL_ITS ---
Discharge Plan Disposition Patient Disposition: Home Condition: Stable Discharge Details Clinical Impression: Nausea vomiting and diarrhea Primary Care Provider: Deisy Obrien ED Provider: Tyler Null Home Meds and New Rx's Prescriptions: New ondansetron 4 mg tablet,disintegrating 4 mg PO Q8H PRN (Reason: nausea and vomiting) Qty: 30 0RF Continued buspirone 15 mg tablet 15 mg PO BID loratadine [Claritin] 10 mg tablet 10 mg PO DAILY albuterol sulfate [Ventolin HFA] 90 mcg/actuation HFA aerosol inhaler 2 puff inhalation 6XD ibuprofen 600 mg Tablet 600 mg PO TID PRN Discharge Instructions Additional Instructions: You are likely suffering from a viral illness. Try to drink fluids to stay hydrated. You can take 600 mg of ibuprofen and 1000 mg of acetaminophen every 6 hours as needed. If you feel significantly more ill, have persistent vomiting despite the nausea medication or severe abdominal pain return to the emergency department for reevaluation. If not improving by Thursday I would follow-up with your primary care provider or express care. Stand Alone Forms: Work Release [facility] General Date/Time Provider Initiated Documentation: 02/17/25 14:00 . Limitations to Documentation: no limitations . Information obtained by: patient . History of Present Illness 29 year old F presents to the emergency department with the chief complaint of n/v/d, described as moderate, Patient started experiencing this hour(s) (8) and it has been constant. No relieving factors improve symptom(s), No exacerbating factors reported . Patient notes fever/chills; denies chest pain. Patient did receive the following treatments prior to arrival, none Related Data Home Medications ?Medication ?Instructions ?Recorded ?Confirmed buspirone 15 mg tablet 15 mg PO BID 06/30/18 02/17/25 loratadine 10 mg tablet (Claritin) 10 mg PO DAILY 06/30/18 02/17/25 ibuprofen 600 mg tablet 600 mg PO TID PRN 05/14/21 02/17/25 albuterol sulfate 90 mcg/actuation 2 puff inhalation 6XD 10/10/24 02/17/25 aerosol inhaler (Ventolin HFA) ondansetron 4 mg disintegrating 4 mg PO Q8H PRN nausea and 02/17/25 tablet vomiting #30 tabs Previous Rx's ?Medication ?Instructions ?Recorded ondansetron 4 mg disintegrating 4 mg PO Q8H PRN nausea and 02/17/25 tablet vomiting #30 tabs Allergies Allergy/AdvReac Type Severity Reaction Status Date / Time pantoprazole (From Protonix) AdvReac Mild Nausea Verified 02/17/25 14:03 seasonal allergies Allergy Intermediate Other (See Uncoded 02/17/25 14:03 Comment) vitamin D AdvReac Mild Other (See Uncoded 02/17/25 14:03 Comment) General Stated Complaint: Nausea/Vomit/Diar BRII: 3 Review of Systems All systems reviewed & are unremarkable except as noted in HPI and below Constitutional Constitutional: Reports chills, Denies fever(s) and Denies weakness Cardiovascular Cardiovascular: Denies chest pain and Denies dyspnea Respiratory Respiratory: Denies cough and Denies dyspnea Gastrointestinal Gastrointestinal: Denies abdominal pain, Reports nausea and Reports vomiting Neurologic Neurologic: Denies weakness Psychiatric Psychiatric: Denies depression Exam Const General: no acute distress Orientation: alert HENMT Head: normal to inspection Ears: external ears normal General nose exam: external nose normal Mouth: mucous membranes dry Eyes General: appearance normal, both eyes and all related structures Neck Neck: normal visual inspection Resp Effort & Inspection: normal respiratory effort and able to speak in complete sentences Auscultation: clear to auscultation bilaterally Cardio Jugular venous pressure: no JVD Rate: regular rate Heart Sounds: no murmurs GI Palpation: soft and nontender Skin General skin exam: no rashes or lesions noted Neuro General: patient alert and patient oriented x3 Extrem General: normal to inspection Psych Mental Status: mental status grossly normal Course Vital Signs Vital signs: Vital Signs Temperature 37.3 C 02/17/25 13:59 Pulse 136 H 02/17/25 13:59 Respiratory Rate 02/17/25 13:59 Blood Pressure 112/79 02/17/25 13:59 Pulse Oximetry 97 02/17/25 13:59 Temperature 37.3 C 02/17/25 13:59 Temperature Source Oral 02/17/25 13:59 Pulse 136 H 02/17/25 13:59 Respiratory Rate 20 02/17/25 13:59 Blood Pressure 112/79 02/17/25 13:59 Blood Pressure Position Sitting 02/17/25 13:59 Pulse Oximetry 97 02/17/25 13:59 Oxygen Delivery Method Room Air 02/17/25 13:59 Oxygen Flow Rate 0 02/17/25 13:59 Medical Decision Making 29-year-old female with a history of anxiety, who comes in with nausea vomiting diarrhea starting this morning. Another household member had similar symptoms this morning but have since resolved. She denies any severe abdominal pain but states she has intermittent cramping. No fevers but she says she has had chills. Denies any recent travel. She is tachycardic on arrival to 130 and sinus tachycardia. She denies any severe chest pain or difficulty breathing. She has dry mucous membranes, soft nontender abdomen. Given nausea vomiting diarrhea suspect gastroenteritis versus food illness. Will check a CBC and CMP and treat symptoms with fluids and Zofran, will also check an hCG. Given lack of abdominal tenderness I doubt surgical pathology such as bowel obstruction do not feel imaging of her abdomen is indicated. Patient feels significantly better, heart rate come down from 130-100. She is tolerating p.o. and no longer has any nausea and still has no abdominal tenderness. Has a mild white count but feel this could be from gastroenteritis. Given lack of abdominal tenderness do not feel imaging of her abdomen is indicated. She is stable for discharge and will follow-up with her PCP if not improving next week and return precautions given Differential Diagnosis Differential Diagnosis: Dehydration, gastroenteritis, food illness, electrolyte abnormality Lab Data Lab results reviewed: Yes I reviewed the patient's lab results. ECG Data Attestation: I personally reviewed and interpreted this ECG (s) as follows: Prior ECG tracings: available for review Interpretation: Sinus tachycardia, rate of 133, no STEMI Quality:SDOH Health Related Social Needs: No Data to Display [facility] All Active Problems (Updated 02/17/25 @ 16:03 by Tyler Null MD) Nausea vomiting and diarrhea (Acute) Pharyngitis (Acute) Insomnia (Acute) Sexually transmitted infection (Acute) Dysuria (Acute) Anxiety with depression (Acute 06/03/17) buspar 15 mg in a.m. 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 Seasonal allergic rhinitis History of substance abuse Chronic iron deficiency anemia Chronic GERD omeprazole daily Tobacco use 1 ppd, quit 06/2019 Asthma inhaler in the past Headache migraines rarely Surgical History Status post cholecystectomy (~05/14/21) History of wisdom tooth extraction Family History (Updated 07/28/22 @ 13:09 by Aby Caro CNM) Father Alcohol abuse Sister Asthma Mother Bipolar 1 disorder Grandmother Bipolar 1 disorder Other Adopted Social History Smoking/Tobacco Use Status: Current every day Tobacco Type: cigarettes Second Hand Exposure: Yes Smoking risk assessment performed?: Yes Alcohol Intake: current Alcohol Intake frequency: a few times a month Alcohol type: beer Drug use: Never Substance use type: does not use Details: alcohol: over one month ago Adopted: Yes (age 6mo) Foster care: No Household members: spouse, children and other Details: 06/2018 Bonilla Bentley 1yo Number of Children: 2 current occupation: Center [employer] Sexually active: Yes Current gender identity: female Seatbelt use: always Do you feel safe at home: Yes Do you feel safe in your relationship?: Yes Female Reproductive History Menstrual control method: implanted History History 3 Para 3 Hx # Term Pregnancies 3 Multiple births 0 Hx # Pregnancies 0 Ectopic pregnancies 0 AB induced 0 Hx Number of Living Children 3 AB spontaneous 0 Past Pregnancies Del. Date GA/Weeks # Preg Succ Route Wgt Sex Labor Lgth Anesth esia Location Prov Complic 04/14/13 40 No vaginal 3316.894 g Female 6 local Margie [place]ley 05/20/17 40 No vaginal 3770.487 g Male 12 local Michelle 02/24/20 41 No vaginal 4025.632 g Male 9 hrs 14 min ARONEY Anthony Delivery Date: 04/14/13 Last Updated by: RONEY Simms. Pitocin augmentation. Delivery Date: 05/20/17 Last Updated by: RONEY Simms, JOSH for prodromal labor Delivery Date: 02/24/20 Last Updated by: Hailee Cortes LPN short umbilical cord noted
[2025-02-17 15:25] LABS: Abs Immature Grans 0.05 10^3/uL (0.0-0.06); Absolute Eosinophil Count 0.01 10^3/uL (0.0-0.7); Absolute Neutrophil Count 13.76 10^3/uL (1.2-6.7); Basophils % 0.1 %; Eosinophils % 0.1 %; HCT 40.5 % (36.0-46.0); HGB 14.3 g/dL (11.2-15.7); Immature Grans % 0.3 %; Lymphocytes % 1.3 %; MCH 30.7 pg (27.0-33.0); MCHC 35.3 % (32.0-36.0); MCV 87 fL (80-95); MPV 10.5 fL (8.0-11.0); Neutrophils % 96.2 %; Platelet Count 231 10^3/uL (130-400); RBC 4.66 10^6/uL (3.93-5.22); RDW 12.4 % (11.7-14.6); RDW-SD 38.4 fL
[2025-02-17] MEDS: Ondansetron 4 MG/2 ML VIAL IVP (15:25)
[2025-02-17] MEDS: Ketorolac 15 MG/ML VIAL IVP (15:25)
[2025-02-17] MEDS: Normal Saline 1,000 ML 1000 ML IV (15:26)
[2025-02-17 15:29] LABS: Absolute Basophil Count 0.01 10^3/uL (0.0-0.2); Absolute Lymphocyte Count 0.19 10^3/uL (1.2-3.4); Absolute Monocyte Count 0.29 10^3/uL (0.1-0.8)
[2025-02-17 15:43] LABS: HCG Qual (Serum) Negative
[2025-02-17 15:48] LABS: ALT 15 U/L (14-59); AST 13 U/L (15-37); Alkaline Phosphatase 105 U/L (46-116); Anion Gap 10.5 mmol/L (3-11); BUN 19 mg/dL (7-18); Bilirubin, Total 0.8 mg/dL (0.2-1.0); CO2 28.5 mmol/L (21.0-32.0); CREATININE 0.7 mg/dL (0.55-1.02); Calcium 8.8 mg/dL (8.5-10.1); Chloride 104 mmol/L (98-107); Estimated GFR 118.51 (mL/min/1.73m2); Glucose 138 mg/dL (74-106); Magnesium 1.7 mg/dL (1.8-2.4); Potassium 3.5 mmol/L (3.5-5.1); Sodium 143 mmol/L (136-145); Total Protein 7.9 g/dL (6.4-8.2)
[2025-02-17 16:03] LABS: COVID-19 PCR Negative (Negative); Influenza A PCR Negative (Negative); Influenza B PCR Negative (Negative); RSV PCR Negative (Negative); Source Nasopharynx
== END 2025-02-17 16:28 | disposition home or self-care (01) ==
PROVIDERS: Emergency Provider Emergency Medicine; PCP Nurse Practitioner Family
DX: R11.2 Nausea with vomiting, unspecified (principal); R19.7 Diarrhea, unspecified; F17.210 Nicotine dependence, cigarettes, uncomplicated
CPT/HCPCS: 80053; 87637; 93005; 96374; 96375; 99284; 81003; 83735; 84703; 85025; 93010; J1885; J2405

== ENCOUNTER 2025-03-27 14:28 | Outpatient (REF) | payer MEDICAID, SELFPAY ==
--- NOTE | 2025-03-27 14:30 | PAPFT_PTH ---
PATIENT: Claudia Greco LOC: [facility] U#:[id number] AGE/SX: 29/F ROOM: RE03/27/[address]: Hailee Villar DO : 1995 BED: DIS: 03/27/2025 SPEC #: [id number] RECD: 03/27/25 18:17 STATUS: AVIVA REQ #: [id number] CANDACE: 03/27/25 14:[address]: Hailee Villar DEPT: [facility] Cytology RECD BY: Juliana Vergara ENTERED: 03/27/25 18:17 SP TYPE: PAPFT OTHR DR: Deisy Obrien Tissues: 1 - CX/ENDOCX FOR PAP SMEARS Procedures: PAP THIN PREP/[facility] Screening HPV DNA PROBE Comments: [id number] (HPV 16 & 18/45)
== END 2025-03-27 14:29 | disposition home or self-care (01) ==
LOC: LBN 14:28
PROVIDERS: PCP Nurse Practitioner Family; Visit Provider Obstetrics & Gynecology
DX: Z11.51 Encounter for screening for human papillomavirus (HPV) (principal); Z01.419 Encounter for gynecological examination (general) (routine) without abnormal findings
CPT/HCPCS: 88142; 87624